=== PATIENT | female | born 1960 | race Caucasian/White ===

== ENCOUNTER → 2018-02-23 | Day surgery (SDC) | payer OTHER ==
[~2018-02-23] MED LIST: MIDAZOLAM 2 MG/2 ML VIAL ONE; PREMYELOGRAM MEDICATION REVIEW 1 EACH MISC PO NR; fentaNYL (PF) 50 MCG/ML 2 ML AMP ONE
[2018-02-23 08:43] LABS: Basophils # (A) 0.1 k/uL (0-0.2); Basophils % (A) 1 %; Eosinophils # (A) 0.2 k/uL (0-0.7); Eosinophils % (A) 2 %; HCT 44.4 % (34.0-46.0); HGB 14.7 gm/dL (11.4-16.0); Lymphocytes # (A) 2.1 k/uL (1.0-4.8); Lymphocytes % (A) 23 %; MCH 31.3 pg (25.0-35.0); MCHC 33.2 g/dL (31.0-37.0); MCV 94.3 fL (80.0-100.0); Mean Platelet Volume 7.2; Monocytes # (A) 0.4 k/uL (0-1.0); Monocytes % (A) 5 %; Neutrophils # (A) 6.2 k/uL (1.3-7.7); Neutrophils % (A) 69 %; Platelet Count 208 k/uL (150-450); RBC 4.71 m/uL (3.80-5.40); RDW 12.7 % (11.5-15.5); WBC 9.1 k/uL (3.8-10.6)
[2018-02-23 08:57] LABS: INR 0.9 (<1.2); Prothrombin Time 9.4 sec (9.0-12.0)
[2018-02-23 08:58] VITALS: RESP 16
[2018-02-23 08:58] LABS: ALT 21 U/L (9-52); AST 21 U/L (14-36); Albumin 4.1 g/dL (3.5-5.0); Alkaline Phosphatase 104 U/L (38-126); Anion Gap 11 mmol/L; Blood Urea Nitrogen 17 mg/dL (7-17); Calcium 8.9 mg/dL (8.4-10.2); Carbon Dioxide 27 mmol/L (22-30); Chloride 104 mmol/L (98-107); Cholesterol 205 mg/dL (<200); Glucose 104 mg/dL (74-99); HDL Cholesterol 44 mg/dL (40-60); LDL Cholesterol,Calculated 134 mg/dL (0-99); Sodium 142 mmol/L (137-145); Total Bilirubin 0.8 mg/dL (0.2-1.3); Total Protein 6.7 g/dL (6.3-8.2); Triglycerides 133 mg/dL (<150)
--- NOTE | 2018-02-23 12:13 | CT ---
EXAMINATION TYPE: CT cervical spine w con DATE OF EXAM: 02/23/2018 COMPARISON: NONE HISTORY: Post myelogram, intervertebral disc degeneration CT DLP: 745.3 mGycm. Automated Exposure Control for Dose Reduction was Utilized. TECHNIQUE: CT scan of the cervical spine is obtained with intrathecal contrast, axial images are obt ained, sagittal and coronal reformatted images are also reviewed. FINDINGS: Cervical spine is visualized in its entirety from C1 through upper thoracic levels, demonst rates satisfactory alignment without evidence of acute fracture or dislocation. Prevertebral soft ti ssue appears within normal limits. The C1-C2 articulation is within normal limits on the coronal pablo ges. Vertebral body heights and disc space heights are maintained. No large posterior disc herniations are seen on sagittal images. Successful contrast opacification of spinal canal is noted after myelogram. Review of axial images shows C2-C3 level to appear within normal limits. Axial images at C3-C4 level show tiny central disc protrusion axial image 51, bilateral neural forami na are patent. Axial images at C4-C5 level are felt within normal limits. Axial images at C5-C6 level shows central disc protrusion effacing anterior thecal sac on axial image 68 with bilateral neural foramina are fel t patent. Axial images at C6-C7 and C7-T1 levels are felt within normal limits. Thyroid gland is not well visualized and may be surgically absent or atrophic. Visualized lung apices are clear. IMPRESSION: Mild multilevel degenerative changes as detailed above.
--- NOTE | 2018-02-23 12:20 | CT ---
EXAMINATION TYPE: CT thoracic spine w con DATE OF EXAM: 02/23/2018 COMPARISON: Prior MRI thoracic spine February 17, 2011 HISTORY: intervertebral disc degeneration per order. CT DLP: 1504.8 mGycm Automated exposure control for dose reduction was used. CONTRAST: CT thoracic spine is performed after intrathecal injection of contrast. FINDINGS: Thoracic spine shows satisfactory alignment without evidence of acute fracture or dislocation. Verteb ral body heights and disc space heights are fairly well-maintained. Prominent Schmorl node superior T 8 endplate is redemonstrated. Spinal cord shows normal caliber and signal with slight turn or posteri or course at inferior T6 level. There is mild to moderate multilevel anterior spurring. There is smal l spur disc complex effacing anterior thecal sac at T10-T11 level on sagittal images. Review of axial images shows no additional areas of suspicious disc herniation in the thoracic spinal cord. Visualized lungs are clear. There is 2.2 cm low dense left adrenal mass, Hounsfield units aver age 7 consistent with lipid rich adenoma axial image 94. IMPRESSION: MILD TO MODERATE MULTILEVEL ANTERIOR SPURRING, SMALL SPUR DISC COMPLEX T10-T11 LEVEL FELT NEW FROM DC IOR MRI.
--- NOTE | 2018-02-23 12:43 | CT ---
EXAMINATION TYPE: CT lumbar spine w con DATE OF EXAM: 02/23/2018 COMPARISON: MRI lumbar spine February 17, 2011 HISTORY: Post myelogram, intervertebral disc degeneration per order. Persistent chronic back pain flex pite multiple surgeries. CT DLP: 1684.3 mGycm Automated exposure control for dose reduction was used. CONTRAST: CT scan of the lumbar is performed after intrathecal injection of contrast. Bone and soft tissue window settings are submitted as well as coronal and sagittal reconstructions. 5 lumbar-type vertebra are redemonstrated. Lumbar spine shows stable and satisfactory alignment witho ut evidence of acute fracture or dislocation. There is metallic disc material L4-L5 level. There are posterior interpedicular rods and screws transfixing L4 and L5 levels bilaterally. There is successfu l contrast opacification of the spinal canal. Slightly more prominent anterior epidural fat beginning at mid L5 level is noted versus prior MRI. There is redemonstration of 1.2 cm Tarlov cyst at S3 leve l sagittal image 35 stable from MRI. There is mild to moderate disc space narrowing with vacuum disc phenomenon and mild anterior spurring L5-S1 level. Otherwise vertebral body and disc space heights ar e maintained above L4 level. No large posterior disc herniations are present. There is posterior spur disc complex mildly effacing anterior thecal sac at T12-L1 level on sagittal image 33. The conus med ullaris is stable in position ending at L1-L2 disc space level. Review of axial images shows posterior spur disc complex mildly effacing anterior thecal sac at T12-L 1 level, bilateral neural foramina are patent. Axial images at L1-L2 and L2-L3 levels are felt within normal limits. Axial images at L3-L4 level show mild facet arthropathy bilaterally. There is mild broad disc bulge m ildly effacing anterior thecal sac. Bilateral neural foramina remain patent. Axial images at L4-L5 level show artifact from fusion hardware, inferior left screw extends lateral t o left vertebra . There is artifact from disc material. Spinal canal is grossly preserved. Bilateral neural foramina are felt patent on sagittal images. Axial images at L5-S1 level show mild to moderate right greater than left facet arthropathy. Spinal c anal is preserved. There is small central disc protrusion seen. There is mild to moderate bilateral n eural foraminal narrowing due to marginal spurring. There is 7 mm calculus in right kidney collecting system axial image 34 there is asymmetric mild righ t-sided pelvic dilatation and proximal to mid hydroureter without definitive calyceal dilatation. The re is mild perinephric fat stranding near UPJ. Entire right ureter is not imaged. Moderate fat replac ed atrophy of posterior paraspinal muscles are redemonstrated. IMPRESSION: Postsurgical changes L4-L5 level redemonstrated with stable and satisfactory alignment. S ome multilevel degenerative changes are seen as detailed above most prominent at L3-L4 and L5-S1 leve ls. Right-sided renal collecting system calculus with mild right-sided hydronephrosis, cannot exclude obstructing distal right ureter calculus. Clinical follow-up advised.
[2018-02-23 13:16] VITALS: PULSE 44
[2018-02-23 13:17] VITALS: BP 159/64
[2018-02-23 13:21] VITALS: TEMP 98
--- NOTE | 2018-02-23 13:21 | FL ---
EXAMINATION TYPE: FL myelogram 2 or more regions DATE OF EXAM: 02/23/2018 COMPARISON: Prior MRI thoracic and lumbar spine February 17, 2011. HISTORY: Persistent back pain despite multiple surgeries. Disc degeneration per order. TECHNIQUE: Fluoroscopic assisted myelogram. A total of 3 minutes 19 seconds of fluoroscopic time was utilized during procedure. 5 spot images are saved during procedure to PACS. Findings: Informed consent was obtained and all the patient's questions were answered. The L2-L3 lev el was was first attempted under fluoroscopy with unsuccessful access into spinal canal. There is the n paraspinal approach right L2-L3 level with longer spinal needle. Standard sterile technique was uti lized as well as appropriate local anesthesia 1% Lidocaine. Spinal needle was introduced into the th ecal sac under fluoroscopic guidance and 15 mL's of Omnipaque 180 was injected. Spot saved images show successful opacification of spinal canal. Postsurgical change L4-L5 level is r edemonstrated. Right-sided renal calculus is noted. Cholecystectomy clips are partially imaged. The patient tolerated the procedure well and was taken to CT. CT myelography is to follow. This repo rt will be dictated separately. Patient was kept in the hospital for short stay after the procedure a nd then discharged home in stable condition. Vital signs were monitored before during and after proce dure. IMPRESSION: Successful myelography for subsequent CT entire spine.
== END ==
LOC: RADPROMAIN 07:58
PROVIDERS: ATTEND Specialist
DX: M50.30 Other cervical disc degeneration, unspecified cervical region (principal); M51.34 Other intervertebral disc degeneration, thoracic region; Z00.00 Encounter for general adult medical examination without abnormal findings; E03.9 Hypothyroidism, unspecified; M50.21 Other cervical disc displacement, high cervical region; M46.04 Spinal enthesopathy, thoracic region; M46.96 Unspecified inflammatory spondylopathy, lumbar region; M51.26 Other intervertebral disc displacement, lumbar region; M46.97 Unspecified inflammatory spondylopathy, lumbosacral region; N13.4 Hydroureter; N20.0 Calculus of kidney
CPT/HCPCS: 84439; 84481; 80061; 80053; 84443; 85025; 85610; 36415; 62305; 72129; 72126; 72132; J2250; Q9965; J3010

== ENCOUNTER → 2020-05-01 | Outpatient (CLI) | payer BC ==
[2020-05-01 11:19] LABS: Appearance,Urine Clear (Clear); Bacteria,Urine Rare /hpf; Basophils # (A) 0.1 k/uL (0-0.2); Basophils % (A) 1 %; Bilirubin,Urine Negative (Negative); Blood,Urine Small (Negative); Color,Urine Yellow; Eosinophils # (A) 0.3 k/uL (0-0.7); Eosinophils % (A) 3 %; Glucose,Urine (UA) Negative (Negative); HCT 47.4 % (34.0-46.0); HGB 15.1 gm/dL (11.4-16.0); Hyaline Casts,Urine 1 /lpf (0-2); Ketones,Urine Negative (Negative); Leukocyte Esterase,Urine Large (Negative); Lymphocytes # (A) 2.3 k/uL (1.0-4.8); Lymphocytes % (A) 20 %; MCH 30.4 pg (25.0-35.0); MCHC 31.9 g/dL (31.0-37.0); MCV 95.3 fL (80.0-100.0); Mean Platelet Volume 8.1; Monocytes # (A) 0.4 k/uL (0-1.0); Monocytes % (A) 3 %; Mucus,Urine Occasional /hpf; Neutrophils # (A) 8.5 k/uL (1.3-7.7); Neutrophils % (A) 73 %; Nitrite,Urine Negative (Negative); PH, Urine 6.5 (5.0-8.0); Platelet Count 183 k/uL (150-450); Protein,Urine Trace (Negative); RBC 4.97 m/uL (3.80-5.40); RBC,Urine 19 /hpf (0-5); RDW 13.5 % (11.5-15.5); Specific Gravity,Urine 1.012 (1.001-1.035); Squamous Epithelial Cell,Urine 5 /hpf (0-4); Urobilinogen,Urine <2.0 mg/dL (<2.0); WBC 11.8 k/uL (3.8-10.6); WBC,Urine 18 /hpf (0-5)
[2020-05-01 11:25] LABS: Calcium 8.8 mg/dL (8.4-10.2); Potassium 3.9 mmol/L (3.5-5.1)
== END | disposition home or self-care (01) ==
LOC: LABPAT 10:16
PROVIDERS: ATTEND Urology
DX: Z01.818 Encounter for other preprocedural examination (principal); N20.1 Calculus of ureter; R35.0 Frequency of micturition
CPT/HCPCS: 36415; 80048; 81001; 85025; 87086

== ENCOUNTER → 2020-05-08 | Day surgery (SDC) | payer BC, OTHER ==
[2020-05-06 09:48] VITALS: BMI 31.6
[~2020-05-08] MED LIST changes: +DEXAMETHASONE SOD PHOSPHATE 10 MG/ML 1 ML VIAL IV ONE; +ENALAPRILAT 1.25 MG/ML 1 ML VIAL ONE; +GENTAMICIN 110 MG in SODIUM CHLORIDE 0.9% 100 ML IVPB ONE; +IOPAMIDOL-370 50ML BTL MISCELLANE ONE; +KETOROLAC 15 MG/ML 1 ML VIAL ONE; +LACTATED RINGERS 1,000 ML IV SCH; +LIDOCAINE 1% (10MG/ML) FOR IV START INTRADERMA PRN; +LIDOCAINE 1% INJ 10MG/ML (20 ML MDV) ONE; +MIDAZOLAM 2 MG/2 ML VIAL IV ONE; +ONDANSETRON 4 MG/2 ML VIAL IVP ONE; -PREMYELOGRAM MEDICATION REVIEW 1 EACH MISC PO NR; +PROPOFOL 10 MG/ML 20 ML VIAL IV ONE; +hydrALAZINE HCL 20 MG/ML 1 ML VIAL IV ONE; +hydrALAZINE HCL 20 MG/ML 1 ML VIAL IVP ONE
--- NOTE | 2020-05-08 14:27 | XR ---
KUB HISTORY: Right-sided kidney stone Frontal KUB and 2 images Right-sided double-J stent is in place. At the level of the proximal aspect of the stent there is a c alcification measuring approximately 8 mm. Postop changes are noted status post posterior lumbar fusi on at L4-5. Surgical staple present in the pelvis, leonie are present right upper quadrant. There ar e vascular calcifications noted. No evident bowel obstruction or pneumoperitoneum. IMPRESSION: Proximal right ureteral calculus, indwelling stent, postop changes.
--- NOTE | 2020-05-08 15:42 | P.HPIHPCON ---
History of Present Illness H&P Date: 05/08/20 Chief Complaint: right sided ureteral stone Ms Denis is 59 yo female with hx 8mm right sided ureteral stone. She is S/P right ureteral stent placement for septic stone. I discussed with her the option of ureteroscopy VS ESWL, discussed the risk of bleeding, infection with her. Discussed the risk of ureteral injury. She understood all the risks and agreed to proceed with right sided ureteroscopy Consent for Procedure: I have explained the operation/procedure to the patient, including the risks, benefits, side effects, alternative therapies (including not receiving the proposed treatment or service), the likelihood of the patient achieving his/her goals, and potential recuperation problems for the procedure/sedation/analgesia, as well as any blood products, if indicated. I also explained to the patient the risks, benefits and side effects of the alternatives, as well as the risks related to not receiving the proposed procedure, care, treatment, or services. - Constitutional Constitutional: Denies chills, Denies fever - Cardiovascular Cardiovascular: Denies chest pain, Denies shortness of breath - Respiratory Respiratory: Denies cough, Denies 7 - Gastrointestinal Gastrointestinal: Denies abdominal pain, Denies diarrhea, Denies nausea, Denies vomiting Past Medical History Past Medical History: COPD, CVA/TIA, Hypertension, Neurologic Disorder, Osteoarthritis (OA), Thyroid Disorder Additional Past Medical History / Comment(s): occasional heart palpitations. spinal cyst. degenerative disc disease History of Any Multi-Drug Resistant Organisms: None Reported Past Surgical History: Back Surgery, Cholecystectomy, Hysterectomy, Orthopedic Surgery Additional Past Surgical History / Comment(s): left neck muscle removed. total thyroidectomy. spinal fusions and disc surgeries. left total knee replacement Past Anesthesia/Blood Transfusion Reactions: No Reported Reaction, Postoperative Nausea & Vomiting (PONV) Additional Past Anesthesia/Blood Transfusion Reaction / Comment(s): no previous blood transfusion, low blood pressure during colonoscpy Smoking Status: Current every day smoker - Past Family History Father Family Medical History: CVA/TIA Additional Family Medical History / Comment(s): emphysema - Mother Family Medical History: Diabetes Mellitus, Hypertension Additional Family Medical History / Comment(s): Parkinsons Medications and Allergies Home Medications Medication Instructions Recorded Confirmed Type ALPRAZolam [Xanax] 0.5 mg PO BID PRN 02/09/18 05/08/20 History Albuterol Inhaler (Mhu) [Ventolin 1 - 2 inhalation INHALATION Q6H PRN 02/09/18 05/08/20 History Hfa Inhaler] Cyclobenzaprine [Flexeril] 1 tab PO Q6H PRN 02/09/18 05/08/20 History Levothyroxine Sodium [Synthroid] 200 mcg PO DAILY 02/09/18 05/08/20 History amLODIPine [Norvasc] 10 mg PO DAILY 02/09/18 05/08/20 History lisinopriL [Zestril] 40 mg PO BID 02/09/18 05/08/20 History Fluticasone/Umeclidin/Vilanter 1 inhalation INHALATION DAILY 05/06/20 05/08/20 History [Trelegy Ellipta 100-62.5-25] Pregabalin [Lyrica] 75 mg PO BID 05/06/20 05/08/20 History Allergies Allergy/AdvReac Type Severity Reaction Status Date / Time morphine Allergy Rash/Hives Verified 05/08/20 14:40 Sulfa (Sulfonamide Allergy Nausea & Verified 05/08/20 14:40 Antibiotics) Vomiting hydromorphone [From Dilaudid] AdvReac Vomiting Verified 05/08/20 14:40 Surgical - Exam Vital Signs Temp Pulse Resp BP Pulse Ox 97.3 F L 52 L 16 208/97 100 05/08/20 14:38 05/08/20 14:38 05/08/20 14:38 05/08/20 14:38 05/08/20 14:38 - General well developed, well nourished, no distress - Respiratory normal expansion, normal respiratory effort - Abdomen Abdomen: soft, non tender - Psychiatric oriented to time, oriented to person, oriented to place Assessment and Plan Assessment: 59 yo female with 8mm right sided ureteral stone -OR for right sided ureteroscopy, with holmium laser lithotripsy and stone basketting
--- NOTE | 2020-05-08 17:34 | P.OP ---
Date of Procedure: 05/08/20 Preoperative Diagnosis: right ureteral calculi Postoperative Diagnosis: Same Procedure(s) Performed: Cystoscopy, retrograde pyelogram, ureteroscopy, holmium laser lithotripsy, stone basketing and stent exchange Implants: 4.8-Spanish by 26 cm stent Anesthesia: AARON Surgeon: Aj Cassidy Estimated Blood Loss (ml): 5 Pathology: other (Right renal stone) Condition: stable Disposition: PACU Indications for Procedure: Ms Denis is 59 yo female with hx 8mm right sided ureteral stone. She is S/P right ureteral stent placement for septic stone. I discussed with her the option of ureteroscopy VS ESWL, discussed the risk of bleeding, infection with her. Discussed the risk of ureteral injury. She understood all the risks and agreed to proceed with right sided ureteroscopy Operative Findings: Large right-sided stone in the renal pelvis Description of Procedure: Patient was brought to the operating room, general anesthesia was induced. He was prepped and draped in the fashion was in a dorsal lithotomy position. Cystoscopy fitted with a 21-Spanish sheath was inserted per urethra, cystoscopy was performed showed no abnormality within the bladder. At this time attention was carried to the right ureteral orifice which stent was protruding from it. The stent was grasped and removed to the meatus. Next a sensor wire was advanced through the stent and the stent was removed with the wire in place. Next a 11 x 13-Spanish access sheath was passed over the wire into the proximal ureter. Next case flexible ureteroscope was inserted through the access sheath Using the holmium laser the stone was dusted. Sizable fragments were removed using the stone basket. Repeat renoscopy showed no sizable fragments and reterograde pyelogram was performed to ensure all calyces were evaluated. Pullback ureteroscopy was performed which showed no injury to the ureter or any ureteral stones. Next the cystoscope was reinserted and a sensor wire was advanced up the right ureteral orifice. Next a 4.8-Spanish by 26 cm stent was passed over the wire, the proximal curl was on fluoroscopy and distal curl was visualized and cystoscope. The bladder was emptied and that the case. The patient tolerated the procedure well was taken to PACU in stable conditi
[2020-05-08 17:37] VITALS: TEMP 97.9
[2020-05-08 19:19] VITALS: BP 160/82; PULSE 74; RESP 16
--- NOTE | 2020-05-10 11:57 | FL ---
EXAMINATION TYPE: FL urography retrograde DATE OF EXAM: 05/08/2020 FLUOROSCOPY Fluoroscopy time of 10 seconds was used during urologic intervention for right sided calculus and kelsi nt insertion. 1 image/s document/s the procedure.
== END ==
LOC: OR 14:09
PROVIDERS: ATTEND Urology
DX: N20.1 Calculus of ureter (principal); J44.9 Chronic obstructive pulmonary disease, unspecified; I10 Essential (primary) hypertension; G98.8 Other disorders of nervous system; M19.90 Unspecified osteoarthritis, unspecified site; M51.9 Unspecified thoracic, thoracolumbar and lumbosacral intervertebral disc disorder; E89.0 Postprocedural hypothyroidism; K08.89 Other specified disorders of teeth and supporting structures; F41.9 Anxiety disorder, unspecified; F32.9 Major depressive disorder, single episode, unspecified; K21.9 Gastro-esophageal reflux disease without esophagitis; F17.210 Nicotine dependence, cigarettes, uncomplicated; Z86.73 Personal history of transient ischemic attack (TIA), and cerebral infarction without residual deficits; Z88.5 Allergy status to narcotic agent; Z88.2 Allergy status to sulfonamides; Z98.890 Other specified postprocedural states; Z90.49 Acquired absence of other specified parts of digestive tract; Z90.710 Acquired absence of both cervix and uterus; Z98.1 Arthrodesis status; Z96.652 Presence of left artificial knee joint; Z91.89 Other specified personal risk factors, not elsewhere classified; Z79.899 Other long term (current) drug therapy; Z79.890 Hormone replacement therapy; Z79.51 Long term (current) use of inhaled steroids; Z96.0 Presence of urogenital implants; Z82.3 Family history of stroke; Z82.5 Family history of asthma and other chronic lower respiratory diseases; Z83.3 Family history of diabetes mellitus; Z82.49 Family history of ischemic heart disease and other diseases of the circulatory system; Z82.0 Family history of epilepsy and other diseases of the nervous system
CPT/HCPCS: 52356; 82365; 74420; 74018; C2625; C1769; J2250; J0360; J1100; J0690; J2405; J2001; J3010; J1580; J1885; J2704; Q9967

== ENCOUNTER → 2020-09-11 | Outpatient (CLI) | payer BC ==
[2020-09-11 07:37] LABS: Basophils # (A) 0.1 k/uL (0-0.2); Basophils % (A) 1 %; Eosinophils # (A) 0.3 k/uL (0-0.7); Eosinophils % (A) 3 %; HCT 45.5 % (34.0-46.0); HGB 15.2 gm/dL (11.4-16.0); Lymphocytes # (A) 2.3 k/uL (1.0-4.8); Lymphocytes % (A) 22 %; MCHC 33.5 g/dL (31.0-37.0); MCV 95.6 fL (80.0-100.0); Mean Platelet Volume 7.2; Monocytes # (A) 0.4 k/uL (0-1.0); Monocytes % (A) 4 %; Neutrophils # (A) 7.5 k/uL (1.3-7.7); Neutrophils % (A) 71 %; Platelet Count 238 k/uL (150-450); RBC 4.75 m/uL (3.80-5.40); RDW 11.9 % (11.5-15.5); WBC 10.5 k/uL (3.8-10.6)
[2020-09-11 09:52] LABS: Erythrocyte Sedimentation Rate 6 mm/hr (0-20)
--- NOTE | 2020-09-11 14:58 | NM ---
EXAMINATION TYPE: NM bone 3 phase DATE OF EXAM: 09/11/2020 COMPARISON: Left knee pain HISTORY: X-ray 09/09/2020 Triple phase bone scintigraphy was performed following the injection of 25.4 mCi Tc 99m MDP. Immedia te images and 5 hours post injection images acquired. FINDINGS: There is asymmetric increased perfusion surrounding the left knee prostheses. There is increased soft tissue uptake on blood pool images. Delayed uptake demonstrates abnormal uptake involving the right knee which is typical of osteoarthrit is. There is faint abnormal uptake surrounding the tibial component of the knee prostheses. IMPRESSION: 1. Increased flow and uptake as discussed above involving the left knee can be associated with loosen ing or infection. Consider tagged WBC study.
== END | disposition home or self-care (01) ==
LOC: RADNMMAIN 07:16
PROVIDERS: ATTEND Orthopaedic Surgery
DX: R93.6 Abnormal findings on diagnostic imaging of limbs (principal); Z88.5 Allergy status to narcotic agent; Z88.2 Allergy status to sulfonamides
CPT/HCPCS: 85652; 85025; 86140; 78315; A9503

== ENCOUNTER 2021-04-08 08:33 | Emergency (ER) | payer BC ==
[2021-04-08 08:39] VITALS: TEMP 97.5
[2021-04-08] MEDS ORDERED: IPRATROPIUM-ALBUTEROL 3 ML NEB INHALATION STA (08:46)
[2021-04-08] MEDS ORDERED: ASPIRIN 81 MG PO STA (08:46)
[2021-04-08] MEDS ORDERED: NITROGLYCERIN OINT 1 INCH/GM PACKET TOPICAL STA (08:46)
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
[2021-04-08 09:27] VITALS: RESP 16
[2021-04-08 09:28] LABS: Basophils # (A) 0.1 k/uL (0-0.2); Basophils % (A) 1 %; Eosinophils # (A) 0.2 k/uL (0-0.7); Eosinophils % (A) 2 %; HCT 45.5 % (34.0-46.0); HGB 15.1 gm/dL (11.4-16.0); Lymphocytes # (A) 2.3 k/uL (1.0-4.8); Lymphocytes % (A) 21 %; MCH 32.1 pg (25.0-35.0); MCHC 33.2 g/dL (31.0-37.0); MCV 96.6 fL (80.0-100.0); Monocytes # (A) 0.5 k/uL (0-1.0); Monocytes % (A) 4 %; Neutrophils # (A) 7.9 k/uL (1.3-7.7); Neutrophils % (A) 72 %; Platelet Count 221 k/uL (150-450); RBC 4.71 m/uL (3.80-5.40); RDW 13.1 % (11.5-15.5)
[2021-04-08 09:42] LABS: Albumin 3.9 g/dL (3.5-5.0); Calcium 9.2 mg/dL (8.4-10.2); Potassium 4.1 mmol/L (3.5-5.1); Total Bilirubin 0.5 mg/dL (0.2-1.3); Total Protein 6.3 g/dL (6.3-8.2)
[2021-04-08 09:50] LABS: INR 0.9 (<1.2); Partial Thromboplastin Time 23.5 sec (22.0-30.0); Prothrombin Time 9.4 sec (9.0-12.0)
--- NOTE | 2021-04-08 10:05 | US ---
EXAMINATION TYPE: US venous doppler duplex LE DATE OF EXAM: 04/08/2021 9:56 AM COMPARISON: NONE CLINICAL HISTORY: paini. Left knee and calf swelling; left calf pain x 1 week SIDE PERFORMED: Left TECHNIQUE: The lower extremity deep venous system is examined utilizing real time linear array sonog warren with graded compression, doppler sonography and color-flow sonography. VESSELS IMAGED: Common Femoral Vein Deep Femoral Vein Greater Saphenous Vein * Femoral Vein Popliteal Vein Small Saphenous Vein * Proximal Calf Veins (* superficial vessels) Left Leg: Negative for DVT Complex fluid collection is noted anterior left knee = 4.3 x 5.8 x 1.1cm. IMPRESSION: 1. No diagnostic evidence of DVT. 2. Complex fluid collection within the anterior soft tissues of the knee correlate clinically measure s approximately 4.3 x 5.8 cm.
--- NOTE | 2021-04-08 10:43 | CT ---
EXAMINATION TYPE: CT angio chest DATE OF EXAM: 04/08/2021 10:27 AM COMPARISON: Chest x-ray June 26, 2020 HISTORY: Dyspnea. Possible DVT left lower extremity with left leg pain. CT DLP: 452.5 mGycm Automated exposure control for dose reduction was used. CONTRAST: CTA scan of the thorax is performed with IV Contrast, patient injected with 80 mL of Isovue 370, pulm onary embolism protocol. MIP images are created and reviewed. FINDINGS: LUNGS: There is 6 x 5 mm nodule and/or nodular consolidation posterior right lower lobe axial image 8 4. The former is suspected. No additional areas of groundglass opacity or focal consolidation. Mild i nterstitial edema and atelectatic change in the periphery of the lower lungs. No pleural effusion or pneumothorax. MEDIASTINUM: There is slightly suboptimal bolus with fecal contrast right and left heart systems but there is no CT evidence for pulmonary embolism. There are no greater than 1 cm hilar or mediastinal lymph nodes. No cardiomegaly or pericardial effusion is seen. OTHER: Slight scoliotic curvature. [id number] multilevel spurring spine. IMPRESSION: No CT evidence for acute pulmonary embolism. No suspicious acute pulmonary process. Small posterior right basilar nodule, consider follow-up CT in one year time.
[2021-04-08 11:16] VITALS: PULSE 51
[2021-04-08 11:25] VITALS: BP 122/59
== END 2021-04-08 11:25 | disposition home or self-care (01) ==
LOC: EC 08:33
DX: M79.662 Pain in left lower leg (principal); R06.00 Dyspnea, unspecified; R07.9 Chest pain, unspecified; F17.200 Nicotine dependence, unspecified, uncomplicated; I10 Essential (primary) hypertension; J44.9 Chronic obstructive pulmonary disease, unspecified; E07.9 Disorder of thyroid, unspecified; Z86.73 Personal history of transient ischemic attack (TIA), and cerebral infarction without residual deficits; Z88.2 Allergy status to sulfonamides; Z88.5 Allergy status to narcotic agent; Z79.890 Hormone replacement therapy; Z79.899 Other long term (current) drug therapy; Z79.51 Long term (current) use of inhaled steroids
CPT/HCPCS: 99285; 36415; 94640; 93005; 85379; 83880; 80053; 83735; 84484; 85025; 85610; 85730; 93971; 71275; Q9967

== ENCOUNTER → 2021-10-15 | Outpatient (CLI) | payer BC ==
--- NOTE | 2021-10-15 12:05 | XR ---
EXAMINATION TYPE: XR cervical spine limited DATE OF EXAM: 10/15/2021 COMPARISON: NONE HISTORY: Left side neck pain TECHNIQUE: 3 views FINDINGS: There is facet arthropathy. There is mild multilevel degenerative disc disease but no compr ession deformities. Lung apices are clear. IMPRESSION: Mild multilevel degenerative disc disease.
== END | disposition home or self-care (01) ==
LOC: RADXRMAIN 11:40
PROVIDERS: ATTEND Family Medicine
DX: M50.30 Other cervical disc degeneration, unspecified cervical region (principal)
CPT/HCPCS: 72040

== ENCOUNTER → 2021-12-14 | Outpatient (CLI) | payer BC ==
--- NOTE | 2021-12-15 08:30 | XR ---
EXAMINATION TYPE: XR cervical spine w flex/ext DATE OF EXAM: 12/14/2021 COMPARISON: 10/15/2021 HISTORY: Pain TECHNIQUE: Four views are submitted. FINDINGS: The odontoid is intact. There are no compression deformities. The prevertebral soft tissue structur es are within normal limits. Atherosclerotic change of the carotid artery on the right suspected. Mi ld diffuse osteopenia. Flexion and extension views demonstrate slight anterior listhesis of all segme nts relative to the corresponding adjacent vertebral segment on flexion views which corrects on neutr al and extension views. Disc space appears to be well preserved. Mild multilevel facet arthropathy an d mild multilevel degenerative disc disease. IMPRESSION: 1. Minimal anterolisthesis of multiple levels on flexion views only. Consider follow-up MRI..
--- NOTE | 2021-12-15 08:43 | XR ---
EXAM TYPE: LUMBAR SPINE X RAY SERIES COMPARISON: NONE HISTORY: Back pain TECHNIQUE: 6 views are submitted including flexion and extension lateral views. FINDINGS: Alignment is anatomic. The pedicles are intact. The transverse processes are intact. There is 2 mm right upper quadrant calcification could be related to tiny renal stone. Vascular calcifications are noted near surgical clips in the gallbladder fossa. Postsurgical change lower lumbar spine with diffuse osteopenia. Degenerative changes are seen at all remaining levels most marked at levels T12-L3. Slight anterolisthesis of L4 on L5 remains stable on f lexion and extension views. Vascular calcifications noted. IMPRESSION: 1. Postsurgical changes. 2. Multilevel degenerative disc disease.
== END | disposition home or self-care (01) ==
LOC: RADXRMAIN 17:23
PROVIDERS: ATTEND Neurological Surgery
DX: M43.12 Spondylolisthesis, cervical region (principal); M51.16 Intervertebral disc disorders with radiculopathy, lumbar region
CPT/HCPCS: 72052; 72114

== ENCOUNTER 2022-01-21 07:18 | Day surgery (SDC) | payer BC ==
[2022-01-19 16:58] VITALS: BMI 31.0
[~2022-01-21 07:18] MED LIST changes: +ALPRAZolam 0.25 MG TAB PO PRN; +ALPRAZolam 0.5 MG TAB PO PRN; +ASPIRIN 325 MG TAB PO PRN; -DEXAMETHASONE SOD PHOSPHATE 10 MG/ML 1 ML VIAL IV ONE; -ENALAPRILAT 1.25 MG/ML 1 ML VIAL ONE; -GENTAMICIN 110 MG in SODIUM CHLORIDE 0.9% 100 ML IVPB ONE; -IOPAMIDOL-370 50ML BTL MISCELLANE ONE; -KETOROLAC 15 MG/ML 1 ML VIAL ONE; -LACTATED RINGERS 1,000 ML IV SCH; -LIDOCAINE 1% (10MG/ML) FOR IV START INTRADERMA PRN; -LIDOCAINE 1% INJ 10MG/ML (20 ML MDV) ONE; -MIDAZOLAM 2 MG/2 ML VIAL IV ONE; -MIDAZOLAM 2 MG/2 ML VIAL ONE; -ONDANSETRON 4 MG/2 ML VIAL IVP ONE; -PROPOFOL 10 MG/ML 20 ML VIAL IV ONE; +SODIUM CHLORIDE 0.9% 1,000 ML in EMPTY BAG 1 BAG IV ONE; -fentaNYL (PF) 50 MCG/ML 2 ML AMP ONE; -hydrALAZINE HCL 20 MG/ML 1 ML VIAL IV ONE; -hydrALAZINE HCL 20 MG/ML 1 ML VIAL IVP ONE
[2022-01-21] MEDS ORDERED: SODIUM CHLORIDE 0.9% 1,000 ML IV ONE (07:33)
[2022-01-21] MEDS ORDERED: ASPIRIN 81 MG ONE (07:33)
[2022-01-21 07:45] VITALS: RESP 16; TEMP 98
[2022-01-21] MEDS ORDERED: fentaNYL (PF) 50 MCG/ML 2 ML AMP ONE (09:35)
[2022-01-21] MEDS ORDERED: fentaNYL (PF) 50 MCG/ML 2 ML AMP IV ONE (10:02)
[2022-01-21] MEDS ORDERED: LIDOCAINE 1% INJ 10MG/ML (30 ML VIAL-PF) SQ ONE (10:02)
[2022-01-21] MEDS ORDERED: MIDAZOLAM 2 MG/2 ML VIAL IV ONE (10:02)
[2022-01-21] MEDS ORDERED: HEPARIN SODIUM 1,000 UN/ML (10ML VL) ONE (10:13)
[2022-01-21] MEDS ORDERED: IOPAMIDOL-250 100ML BTL INTRAARTER ONE ×2 (10:40)
[2022-01-21] MEDS ORDERED: hydrALAZINE HCL 20 MG/ML 1 ML VIAL IVP STA (12:04)
--- NOTE | 2022-01-21 12:26 | IR ---
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 Fluoroscopy was provided to the referring clinician.
[2022-01-21] MEDS ORDERED: ACETAMINOPHEN TAB 500 MG TAB PO ONE (15:00)
[2022-01-21 15:26] VITALS: BP 158/72; PULSE 62
--- NOTE | 2022-01-21 19:30 | P.PCN ---
Description of Procedure: PROCEDURES PERFORMED: Abdominal angiography with RLE runoff, SUMMER BABYSITTER and DCB of distal right SFA with a 6.0 x 40mm InPACT balloon INDICATION: Acute limb ischemia HISTORY: Patient is a pleasant 61-year-old female who presented with right first and second digit discoloration and pain consistent with ischemia. She was evaluated at outside hospital with a CTA which did not mention any significant disease however did have a venous ultrasound where there was incidental note of a right SFA lesion with increased velocities of 700 cm/s consistent with an obstructive lesion. Patient has continued to have nonhealing of her toes and pain and therefore recommended angiography with possible intervention. CONSENT:I have discussed the risks, benefits and alternative therapies for the above-mentioned procedure and for both sedation/analgesia as well as necessary blood product administration, if indicated, as they pertain to this patient. The patient has indicated understanding and acceptance of the risks and procedures discussed. PROCEDURE: After the risks, benefits and alternatives of the above mentioned procedure explained in detail with the patient, informed consent was obtained. Patient was taken to the catheterization lab and prepped and draped in usual fashion. 1% lidocaine was used to anesthetize the left femoral area. A 6- Icelandic sheath was placed in the left femoral artery using modified Seldinger technique. A 5-Icelandic pigtail catheter was inserted to the abdominal aorta and DSA imaging was obtained. Next, a 0.035 stiff Glidewire was advanced into the right SFA with a rim catheter. Over the glide wire, a 6-Icelandic destination sheath was advanced into the right SFA and selective right lower extremity angiography was performed. There was a distal right SFA focal lesion which appeared to have fresh thrombus, likely accounting for being missed on CTA. The decision was made to perform intervention of the right SFA. IV heparin was given. A 0.035 glide wire was used to cross the lesion. Balloon angioplasty was performed with a 4.0 x 20mm balloon. Next drug-coated balloon angioplasty was performed with a 6.0 x 40 mm InPACT DCB. The wire was pulled and final angiograms were performed. Pre intervention there was 80% stenosis with uninhibited flow. Post intervention there was <10% stenosis and uninhibited flow. A left femoral angiogram was performed and anatomoy was suitable for closure. A 6Fr Angioseal was placed with hemostasis achieved. The patient tolerated the procedure well. Patient was transported back to the post catheterization holding area in stable condition. Conscious Sedation: Patient was monitored under the direct supervision of vision of myself for conscious sedation using Versed and fentanyl for a total duration of 39 minutes HEMODYNAMICS: Ao: 144/78 Abdominal aorta: The abdominal aorta has mild calcifcation. Renal arteries not viewed. There is no significant dissection or aneurysm. There is no significant stenosis. Right lower extremity: Right common iliac artery: There is no significant stenosis. Right external iliac artery: There is no significant stenosis. Right internal iliac artery: There is no significant stenosis. Right common femoral artery: There is no significant stenosis. Right profunda: There is no significant stenosis. Right SFA: There is a focal 80% distal right SFA lesion. Right popliteal artery: There is no significant stenosis. Right tibioperoneal trunk: There is no significant stenosis. Right anterior tibial artery: There is no significant stenosis. Right porterior tibial artery: There is no significant stenosis. Right peroneal artery: There is no significant stenosis. Left lower extremity: Left common iliac artery: There is no significant stenosis. Left external iliac artery: There is no significant stenosis. Left internal iliac artery: There is no significant stenosis. Left common femoral artery: There is no significant stenosis. Left profunda: Not imaged. Left SFA: Not imaged. Left popliteal artery: Not imaged. Left tibioperoneal trunk: Not imaged. Left anterior tibial artery: Not imaged. Left porterior tibial artery: Not imaged. Left peroneal artery: Not imaged. FINAL IMPRESSION: 1. Peripheral arterial disease as described above with focal 80% stenosis of the distal right SFA. 2. S/p successful SUMMER BABYSITTER and DCB of distal right SFA with a 6.0 x 40mm InPACT balloon PLAN: 1. Aggressive risk factor modification per most recent ACC/AHA guidelines. 2. Continue dual antipatelets 3. Right SFA lesion appears to have fresh thrombus and is the most likely source for patient's acute limb ischemia with likely plaque rupture and distal embolization.
== END 2022-01-21 15:45 | disposition home or self-care (01) ==
LOC: CATHCVL 07:18
PROVIDERS: ATTEND Internal Medicine
DX: I70.211 Atherosclerosis of native arteries of extremities with intermittent claudication, right leg (principal); I10 Essential (primary) hypertension; Z20.822 Contact with and (suspected) exposure to COVID-19; J44.9 Chronic obstructive pulmonary disease, unspecified; R00.1 Bradycardia, unspecified; E78.5 Hyperlipidemia, unspecified; M54.9 Dorsalgia, unspecified; Z86.73 Personal history of transient ischemic attack (TIA), and cerebral infarction without residual deficits; Z82.49 Family history of ischemic heart disease and other diseases of the circulatory system; F17.210 Nicotine dependence, cigarettes, uncomplicated; Z79.02 Long term (current) use of antithrombotics/antiplatelets; Z79.82 Long term (current) use of aspirin; Z79.890 Hormone replacement therapy; Z79.899 Other long term (current) drug therapy; Z88.5 Allergy status to narcotic agent; Z88.2 Allergy status to sulfonamides
CPT/HCPCS: 37224; 75625; 75710; 87635; C1760; C1769 ×4; C1894 ×2; C2623; J2250; J0360; J2001; J3010; J1644; Q9966; 36200; 75716

== ENCOUNTER → 2022-02-17 | Outpatient (CLI) | payer BC ==
--- NOTE | 2022-02-17 14:47 | US ---
EXAMINATION TYPE: US arterial LE single level DATE OF EXAM: 02/17/2022 1:44 PM CLINICAL HISTORY: F17.210,I10,R00.2. History of hyperlipidemia and hypertension. History of tobacco u se. History of prior femoral artery angioplasty. Doppler Waveforms: Right: Biphasic to monophasic Left: Biphasic to monophasic Pulse Volume Recording: Satisfactory Ankle-Brachial Indices: Right: 1.08 Left: 1.02 Toe Brachial Indices: Right: 0.92 Left: 0.98 IMPRESSION: Loss of phasicity may warrant further clinical workup. Normal DEVON and TBI values bilater ally.
--- NOTE | 2022-02-18 09:05 | CA ---
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 18 - 58 / 22 - 52 cm??? M-MODE Aortic Root Diameter MM 3.7 cm AV Cusp Separation MM 1.9 cm DOPPLER AV Peak Velocity 149.5 cm/s AV Peak Gradient 8.9 mmHg LVOT Peak Velocity 130.9 cm/s LVOT Peak Gradient 6.9 mmHg MV Area PHT 3.4 cm??? Mitral E Point Velocity 74.6 cm/s Mitral A Point Velocity 81.5 cm/s Mitral E to A Ratio 0.9 MV Deceleration Time 226.4 ms MV E' Velocity 6.8 cm/s Mitral E to MV E' Ratio 11.0 TR Peak Velocity 254.4 cm/s TR Peak Gradient 25.9 mmHg Right Ventricular Systolic Press 30.9 mmHg FINDINGS Left Ventricle Moderately increased left ventricular wall thickness. Normal left ventricular systolic function with no obvious regional wall motion abnormalities.normal left ventricular diastolic filling pattern. Left ventricular ejection fraction is estimated at 55-60 %. Right Ventricle Normal right ventricular size and function. Right ventricular systolic pressure within normal limits. Right Atrium Normal right atrial size. Left Atrium Normal left atrial size. No evidence for an atrial septal defect. Mitral Valve Structurally normal mitral valve. No mitral stenosis, regurgitation or prolapse. Aortic Valve Aortic valve not well visualized. No aortic valve stenosis or regurgitation. Tricuspid Valve Trace to mild tricuspid regurgitation. Pulmonic Valve Pulmonic valve not well visualized. Pericardium No pericardial effusion. Aorta Normal size aortic root and proximal ascending aorta. CONCLUSIONS Normal LV size and systolic function. There is mild aortic valve sclerosis no restriction. No significant abnormality on the Doppler exam. No pericardial effusion Previewed by: Dr. Dee Dee Perkins MD (Electronically Signed) Final Date: 18 February 2022 09:04
== END | disposition home or self-care (01) ==
LOC: RADUSWWP 12:54
PROVIDERS: ATTEND Internal Medicine
DX: I35.2 Nonrheumatic aortic (valve) stenosis with insufficiency (principal); I10 Essential (primary) hypertension; Z87.891 Personal history of nicotine dependence
CPT/HCPCS: 93306; 93922

== ENCOUNTER → 2022-05-03 | Outpatient (CLI) | payer BC ==
--- NOTE | 2022-05-03 09:16 | CTL ---
EXAMINATION TYPE: CT Low Dose Lung DATE OF EXAM ORDERED: 05/03/2022 HISTORY: Lung cancer screening CT DLP: 110.[address] CTDI: 3.4 mGy Automated exposure control for dose reduction was used. SCREENING VISIT: Initial screening. COMPARISON: CT chest 04/08/2021 TECHNIQUE: Low dose computed tomography scan was performed through the chest at 1 mm thick sections a nd reconstructed images in multiple planes at 1 mm and [address] DIAGNOSTIC QUALITY: Satisfactory FINDINGS: LUNG NODULES: Stable left upper lobe apical irregular opacity measuring 2-3 mm Stable posterior segment right lower lobe posterior air cysts with subtle peripheral groundglass opac ity. LUNGS: COPD: Severity: Mild Fibrosis: Severity: None Lymph nodes: None Other findings: Right minor fissure intrafissural lymph node. Mild bronchial wall thickening noted ce ntrally. RIGHT PLEURAL SPACE: Effusion: None Calcification: None Thickening: None Pneumothorax: None LEFT PLEURAL SPACE: Effusion: None Calcification: None Thickening: None Pneumothorax: None HEART: Heart Size: Normal Coronary Calcification: Minimal coronary artery atherosclerosis.. Pericardial Effusion: None OTHER FINDINGS: Upper abdomen: None Bony thorax: Mild multilevel disc degeneration changes. Supraclavicular region: None Other: None IMPRESSION: 1. No clinically significant pulmonary nodules. 2. Mild COPD. CT LUNG RAD AND CT CHEST RECOMMENDATION: Lung-Rad 2 Benign Appearance or Behavior: Continue annual sc reening with LDCT in 12 months. S Modifier (other clinically significant findings): None
== END | disposition home or self-care (01) ==
LOC: RADCTMAIN 07:33
PROVIDERS: ATTEND Internal Medicine Critical Care Medicine
DX: Z12.2 Encounter for screening for malignant neoplasm of respiratory organs (principal); J44.9 Chronic obstructive pulmonary disease, unspecified; Z87.891 Personal history of nicotine dependence
CPT/HCPCS: 71271

== ENCOUNTER → 2022-05-03 | Outpatient (CLI) | payer BC | END | disposition home or self-care (01) | LOC: LABWHC1 07:06 | PROVIDERS: ATTEND Urology | DX: D35.00 Benign neoplasm of unspecified adrenal gland (principal) | CPT/HCPCS: 36415; 82533; 83835 ==

== ENCOUNTER → 2022-06-09 | Outpatient (CLI) | payer BC ==
--- NOTE | 2022-06-13 16:05 | US ---
EXAMINATION TYPE: US arterial LE single level DATE OF EXAM: 06/09/2022 9:52 AM CLINICAL HISTORY: I73.9 PVD I70.212 CLAUDICATION. Prior wound on right 5ht digit, no longer visualiz ed. History of prior darkened discoloration of right 5th digit, now slightly discolored. Prior righ t femoral angioplasty in January 2022. Doppler Waveforms: Right: Multiphasic Left: Multiphasic Ankle-Brachial Indices: Right: 1.0 Left: 1.1 Toe Brachial Indices: Right: 0.68 Left: 0.67 Additional doppler waveforms obtained on 5th digit for comparison. Appears consistent with 1st digit waveforms bilaterally. IMPRESSION: Normal ankle brachial indices
== END | disposition home or self-care (01) ==
LOC: RADUSWWP 08:55
PROVIDERS: ATTEND Internal Medicine
DX: I70.212 Atherosclerosis of native arteries of extremities with intermittent claudication, left leg (principal)
CPT/HCPCS: 93922

== ENCOUNTER → 2023-03-10 | Outpatient (CLI) | payer BC ==
--- NOTE | 2023-03-10 17:35 | CTL ---
EXAMINATION TYPE: CT Low Dose Lung DATE OF EXAM ORDERED: 03/10/2023 HISTORY: Nicotine dependence. Lung cancer screening CT DLP: 82.2 mGycm Automated exposure control for dose reduction was used. SCREENING VISIT: Subsequent COMPARISON: 05/03/2022 TECHNIQUE: Low dose computed tomography scan was performed through the chest at 1 mm thick sections a nd reconstructed images in the coronal plane at [address] DIAGNOSTIC QUALITY: Satisfactory FINDINGS: LUNG NODULES: Present, detailed below: 1. There is a 0.5 cm medial right upper lobe nodule, present previously. Series 4 image 66 LUNGS: COPD: Severity: None Fibrosis: Severity: None Lymph nodes: Non- Other findings: None RIGHT PLEURAL SPACE: Effusion: None Calcification: None Thickening: None Pneumothorax: None LEFT PLEURAL SPACE: Effusion: None Calcification: None Thickening: None Pneumothorax: None HEART: Heart Size: Normal Coronary calcification: Moderate Pericardial effusion: None OTHER FINDINGS: Upper abdomen: Left adrenal gland is enlarged measuring 2.0 cm. Bony thorax: Normal Supraclavicular region: Normal Other: Ascending thoracic aorta at the main pulmonary arteries 3.5 cm patent main pulmonary artery th e bifurcation is 3.2 cm. IMPRESSION: Stable right lung nodule. FOLLOW UP CT CHEST RECOMMENDATION: Low-dose CT chest [address] LUNG RAD: Lung-Rad 2 Benign Appearance or Behavior
== END | disposition home or self-care (01) ==
LOC: RADCTMAIN 10:22
PROVIDERS: ATTEND Internal Medicine Critical Care Medicine
DX: Z12.2 Encounter for screening for malignant neoplasm of respiratory organs (principal); F17.210 Nicotine dependence, cigarettes, uncomplicated; R91.1 Solitary pulmonary nodule
CPT/HCPCS: 71271

== ENCOUNTER → 2023-03-10 | Outpatient (CLI) | payer BC ==
--- NOTE | 2023-03-10 10:55 | MM ---
Reason for Exam: Screening (asymptomatic). Last mammogram was performed 1 year(s) and 9 month(s) ago. Patient History: Menarche at age 13. First Full-Term at age 33. Late child-bearing (after 30). Hysterectomy at age 38. Patient used Estrogen for 1 year. Risk Values: Lenora 5 year model risk: 2.0%. NCI Lifetime model risk: 9.7%. Prior Study Comparison: 07/31/2019 Bilateral Screening Mammogram, [facility]. 06/07/2021 Bilateral Screening Mammogram, [facility]. Tissue Density: The breast tissue is heterogeneously dense. This may lower the sensitivity of mammography. Findings: Analyzed By CAD. Asymmetry left breast 4.7 cm from nipple on CC view thought to be in the middle depth on the MLO view at posterior nipple line. Right breast: There is no suspicious group of microcalcifications or new suspicious mass in either breast. Overall Assessment: Incomplete: need additional imaging evaluation, BI-RAD 0 Management: Diagnostic Mammogram of the left breast. [facility] will attempt to contact patient to return for supplemental views and ultrasound if indicated. Patient should continue monthly self-breast exams. A clinical breast exam by your physician is recommended on an annual basis. This exam should not preclude additional follow-up of suspicious palpable abnormalities. Note on Lenora scores and lifetime risk: 1. A Lenora score greater than 3% is considered moderate risk. If this is the case, consider specialist referral to assess eligibility for a risk reducing agent. 2. If overall lifetime risk for the development of breast cancer is 20% or higher, the patient may qualify for future screening with alternating mammogram and breast MRI. Electronically signed and approved by: Salazar Rosas DO
== END | disposition home or self-care (01) ==
LOC: RADMAMWWP 09:27
PROVIDERS: ATTEND Family Medicine
DX: Z12.31 Encounter for screening mammogram for malignant neoplasm of breast (principal)
CPT/HCPCS: 77063; 77067

== ENCOUNTER → 2023-03-10 | Outpatient (CLI) | payer BC ==
[2023-03-10 16:33] LABS: ALT 7 U/L (8-44); AST 12 U/L (13-35); Chol/HDL Ratio 4.36 Ratio; LDL Cholesterol,Calculated 131.9 mg/dL (0.0-131.0)
== END | disposition home or self-care (01) ==
LOC: LABWHC1 09:30
PROVIDERS: ATTEND Nurse Practitioner Acute Care
DX: E78.2 Mixed hyperlipidemia (principal)
CPT/HCPCS: 36415; 80061; 84450; 84460

== ENCOUNTER → 2023-03-16 | Outpatient (CLI) | payer BC ==
--- NOTE | 2023-03-16 09:02 | MM ---
Reason for Exam: Additional evaluation requested from abnormal screening. Last screening mammogram was performed less than 1 month ago. Patient History: Menarche at age 13. First Full-Term at age 33. Late child-bearing (after 30). Hysterectomy at age 38. Patient used Estrogen for 1 year. Risk Values: Lenora 5 year model risk: 2.0%. NCI Lifetime model risk: 9.7%. Prior Study Comparison: 07/31/2019 Bilateral Screening Mammogram, [facility]. 06/07/2021 Bilateral Screening Mammogram, [facility]. 03/10/2023 Bilateral MG 3D screening mammo w/cad, [facility]. Tissue Density: Left: There are scattered fibroglandular densities. Findings: Analyzed By CAD. Spiculated appearing persistent focal asymmetry measuring 1.2 cm approximately 3-4 o'clock anterior depth within the left breast. Further ultrasound evaluation recommended. Overall Assessment: Incomplete: need additional imaging evaluation, BI-RAD 0 Management: Diagnostic Breast Ultrasound of the left breast. Entire breast including the axilla. Particular attention to the 3 to 4:00 position. Electronically signed and approved by: Maxim Raphael M.D. Radiologist
== END | disposition home or self-care (01) ==
LOC: RADMAMWWP 07:33
PROVIDERS: ATTEND Family Medicine
DX: R92.8 Other abnormal and inconclusive findings on diagnostic imaging of breast (principal)
CPT/HCPCS: 77061; 77065

== ENCOUNTER → 2023-03-20 | Outpatient (CLI) | payer BC ==
--- NOTE | 2023-03-20 08:15 | USB ---
Reason for Exam: Additional evaluation requested from abnormal screening. Patient History: Menarche at age 13. First Full-Term at age 33. Late child-bearing (after 30). Hysterectomy at age 38. Patient used Estrogen for 1 year. Risk Values: Lenora 5 year model risk: 2.0%. NCI Lifetime model risk: 9.7%. Technique: Method: Whole Breast Handheld. Prior Study Comparison: 06/07/2021 Bilateral Screening Mammogram, [facility]. 03/10/2023 Bilateral MG 3D screening mammo w/cad, [facility]. 03/16/2023 Left MG 3D work up w/cad , [facility]. Findings: The whole breast of the left breast, the axilla of the left breast and the retroareolar of the left breast were scanned. Imaged: Ultrasound imaging of: Area of concern, retroareolar region and axilla. Suspicious hypoechoic mass in the left breast 3:00 to summation of normal measuring 1.2 x 1.2 x 0.5 cm. Overall Assessment: Highly suggestive of malignancy, BI-RAD 5 Management: Ultrasound Core Biopsy of the left breast. A clinical breast exam by your physician is recommended on an annual basis and results should be correlated with mammographic findings. This exam should not preclude additional follow-up of suspicious palpable abnormalities. Results were given to the patient verbally at the time of exam. Electronically signed and approved by: Salazar Rosas DO
== END | disposition home or self-care (01) ==
LOC: RADUSWWP 07:06
PROVIDERS: ATTEND Family Medicine
DX: R92.8 Other abnormal and inconclusive findings on diagnostic imaging of breast (principal)

== ENCOUNTER → 2023-03-29 | Day surgery (SDC) | payer BC ==
--- NOTE | 2023-04-10 12:01 | MM ---
Reason for Exam: Post Procedure Mammogram. Last screening mammogram was performed less than 1 month ago. Patient History: Menarche at age 13. First Full-Term at age 33. Late child-bearing (after 30). Hysterectomy at age 38. Patient used Estrogen for 1 year. Risk Values: Lenora 5 year model risk: 2.0%. NCI Lifetime model risk: 9.7%. Prior Study Comparison: 07/31/2019 Bilateral Screening Mammogram, [facility]. 06/07/2021 Bilateral Screening Mammogram, [facility]. 03/10/2023 Bilateral MG 3D screening mammo w/cad, [facility]. 03/16/2023 Left MG 3D work up w/cad LT, [facility]. 03/20/2023 Left US breast workup , [facility]. Tissue Density: Left: The breast tissue is heterogeneously dense. This may lower the sensitivity of mammography. Pathology Description: Location: 3 o'clock. Marker Left Behind. Needle Type: Mammotome Cores: 9 Skin Nicks: 1 Gauge: 13 The procedure of ultrasound guided core biopsy was explained to the patient. Benefits, alternatives, and risks were discussed. An informed consent was then obtained. The patient was placed in supine positioning for imaging and for the procedure. The overlying skin was prepped and draped in usual sterile fashion. Lidocaine buffered with bicarbonate was used as anesthetic into the skin and subcutaneous tissue up to area of concern in the left breast at 2:00 2 cm from nipple. A frederick was made with surgical scalpel. Under ultrasound guidance, a 12-gauge vacuum assisted biopsy gun device was used to obtain 9 core samples. Following this, a biopsy clip was left in lesion. The patient tolerated the procedure well without any immediate complication. The patient was kept in the radiology department for short stay after the procedure and then discharged home in stable condition. Postprocedure mammogram: The patient was transferred to mammography for physician ordered post procedure mammogram for clip placement verification. Impression: Successful, uncomplicated ultrasound guided core biopsy of area of concern in the left breast, full pathology results to follow. Pathology Results: Result: Malignant, Invasive ductal carcinoma. LEFT BREAST, THREE O'CLOCK, ULTRASOUND GUIDED NEEDLE CORE BIOPSY: Invasive moderately differentiated ductal carcinoma (Grade 2). See Surgical Pathology Cancer Case Summary and Comment. Overall Assessment: Malignant Assessment: MG diagnostic mammo LT wo CAD. - Left: Known biopsy proven malignancy, BI-RAD 6. Management: Surgical Consultation of the left breast. Electronically signed and approved by: Salazar Rosas DO
== END ==
LOC: RADUSWWP 07:44
PROVIDERS: ATTEND Surgery
DX: R92.8 Other abnormal and inconclusive findings on diagnostic imaging of breast (principal); C50.812 Malignant neoplasm of overlapping sites of left female breast
CPT/HCPCS: 88305; 88342; 88341; 77065; 19083; A4648

== ENCOUNTER 2023-04-14 07:11 | Day surgery (SDC) | payer BC ==
[~2023-04-14 07:11] MED LIST changes: +ACETAMINOPHEN TAB 500 MG TAB PO PRN; -ALPRAZolam 0.25 MG TAB PO PRN; -ALPRAZolam 0.5 MG TAB PO PRN; -ASPIRIN 325 MG TAB PO PRN; +DEXAMETHASONE SOD PHOSPHATE 4 MG/ML 1 ML VIAL IV ONE; +HEPARIN SODIUM,PORCINE/PF 5,000 UNIT/0.5 ML SYRINGE SQ PRN; +LACTATED RINGERS 1,000 ML IV SCH; +MIDAZOLAM 2 MG/2 ML VIAL IV PRN; +ONDANSETRON 4 MG/2 ML VIAL IVP ONE; +Pre Op ABX Message 1 EACH MISC MISCELLANE ONE; +SCOPOLAMINE 1 MG/72 HR PATCH TRANSDERM ONE; -SODIUM CHLORIDE 0.9% 1,000 ML in EMPTY BAG 1 BAG IV ONE; +fentaNYL (PF) 50 MCG/ML 2 ML AMP IV PRN
[2023-04-14] MEDS ORDERED: LIDOCAINE 1% INJ 10MG/ML (20 ML MDV) SQ ONE (08:49)
[2023-04-14] MEDS ORDERED: fentaNYL (PF) 50 MCG/ML 2 ML AMP ONE (09:35)
[2023-04-14] MEDS ORDERED: PROPOFOL 10 MG/ML 20 ML VIAL IV ONE (09:35)
[2023-04-14] MEDS ORDERED: MIDAZOLAM 2 MG/2 ML VIAL ONE (09:35)
[2023-04-14] MEDS ORDERED: GLYCOPYRROLATE 0.2 MG/ML 2 ML VIAL ONE (09:35)
[2023-04-14] MEDS ORDERED: LIDOCAINE 2% INJ 20 MG/ML (2 ML VIAL) ONE (09:35)
[2023-04-14] MEDS ORDERED: KETOROLAC 15 MG/ML 1 ML VIAL ONE (09:35)
[2023-04-14] MEDS ORDERED: ePHEDrine 50 MG/ML 1 ML VIAL ONE (09:35)
[2023-04-14] MEDS ORDERED: SODIUM CHLORIDE 0.9% 50 ML with ceFAZolin 2,000 MG IV ONE ×2 (09:40)
[2023-04-14] MEDS ORDERED: ceFAZolin 1,000 MG VIAL ONE (09:58)
[2023-04-14] MEDS ORDERED: SODIUM CHLORIDE 0.9% 100 ML BAG ONE (09:58)
[2023-04-14] MEDS ORDERED: METHYLENE BLUE 50 MG/10 ML AMPUL INJ ONE (10:00)
[2023-04-14] MEDS ORDERED: HYDROmorphone 1 MG/ML 1 ML SYRINGE IVP PRN (11:08)
[2023-04-14] MEDS ORDERED: NALOXONE 0.4 MG/ML 1 ML VIAL IV PRN (11:08)
[2023-04-14] MEDS ORDERED: HYDROcodone/APAP 5-325MG 1 EACH TAB PO PRN (11:08)
--- NOTE | 2023-04-14 11:11 | P.OP ---
Date of Procedure: 04/14/23 Procedure(s) Performed: PREOPERATIVE DIAGNOSIS: Left breast cancer POSTOPERATIVE DIAGNOSIS: Same PROCEDURE: Left Breast wire localization lumpectomy with sentinel lymph node biopsy SURGEON: Ivan EBL: 10 mL ANESTHESIA: General COMPLICATIONS: None OPERATIVE PROCEDURE: Patient was placed on the operating room table in the supine position. 2 mL of methylene blue was injected into the subareolar space. The breast was then massaged for 5 minutes. The breast was prepped and draped in usual sterile fashion. The left axilla was addressed at that time. The hot spot in the left axilla was identified. A small curvilinear incision was made using the scalpel. Dissection down through the subcutaneous tissues took place using electrocautery. Using the neoprobe I identified a total of 4 sentinel lymph nodes. None of these were blue in color. These had benign exam characteristics. These were all removed and sent to pathology for permanent sectioning. The surgical site was inspected and no bleeding was seen. The subcutaneous tissues were closed using 3-0 Vicryl sutures. The skin was closed using 4-0 Monocryl sutures. The wire entrance site was then addressed. This was present at the 3:00 location. A curvilinear incision was made adjacent to the wire entrance site. I followed the wire down into the breast tissue. An adequate lumpectomy specimen then took place around the wire. Margins of 1.5-2 cm worth attempted to be achieved. Palpation of the specimen suggested that the posterior and superior margins were somewhat close. I took an additional margin posteriorly and superiorly and these margins were painted the appropriate color on the new margin side. The initial specimen was also painted the appropriate 6 colors. Clips were used to identify the lumpectomy cavity. The clip was confirmed to be within the lumpectomy specimen by radiology. The subcutaneous tissues were closed using 3-0 Vicryl sutures. The skin was closed using a running 4-0 Monocryl stitch. Skin glue was then applied. DISPOSITION: Stable to recovery room
--- NOTE | 2023-04-14 11:13 | NM ---
EXAMINATION TYPE: NM sentinel node injection DATE OF EXAM: 04/14/2023 COMPARISON: NONE CLINICAL INDICATION: Female, 62 years old with history of Breast cancer; TECHNIQUE AND FINDINGS: The procedure of sentinel lymph node injection was explained to the patient. The benefits, alternatives, and risks were discussed. An informed consent was then obtained. Overlying skin is cleaned with sterile alcohol. Following this, 517 uCi Tc99m Tilmanocept was inject ed in the upper outer aspect of the left nipple intradermally. The patient tolerated the procedure well without any immediate complication. The patient was kept in the radiology department for short stay after the procedure and then taken to surgery for surgical p rocedure what is presumed intraoperative gamma probe will be used for sentinel lymph node detection. IMPRESSION: Left breast radiotracer injection for sentinel node localization as above.
[2023-04-14 11:15] VITALS: TEMP 96.8
[2023-04-14] MEDS ORDERED: ONDANSETRON 4 MG/2 ML VIAL IVP ONE (11:29)
[2023-04-14] MEDS ORDERED: fentaNYL (PF) 50 MCG/ML 2 ML AMP IVP ONE (11:48)
[2023-04-14 12:29] VITALS: RESP 20
[2023-04-14 13:22] VITALS: BP 124/66; PULSE 64
--- NOTE | 2023-04-20 14:08 | MM ---
Reason for Exam: Post Procedure Mammogram. Last screening mammogram was performed 1 month(s) ago. Patient History: Menarche at age 13. First Full-Term at age 33. Late child-bearing (after 31). Hysterectomy at age 38. Breast cancer, left, age 62. Patient used Estrogen for 1 year. 03/29/2023, Malignant US biopsy breast VAD LT on the left side. Prior Study Comparison: 03/10/2023 Bilateral MG 3D screening mammo w/cad, [facility]. 03/16/2023 Left MG 3D work up w/cad LT, [facility]. 03/29/2023 Left MG diagnostic mammo LT wo CAD., [facility]. Tissue Density: Left: The breast tissue is heterogeneously dense. This may lower the sensitivity of mammography. Pathology Description: Location: 2 o'clock, upper outer quadrant, anterior. Needle Type: 5 cm Kopan Informed consent was obtained and all the patient's questions were answered. The lesion in question was localized sonographically. The standard sterile technique was utilized, as well as appropriate local anesthesia with 1% Lidocaine. Localization needle followed by placement of a guidewire was performed under sonographic guidance. Verification images demonstrate appropriate deployment of the guidewire utilizing ultrasound and mammographic views. The patient tolerated the procedure well and left the department in stable condition. Specimen radiograph demonstrates the clip, wire and lesion in question to reside within the specimen. IMPRESSION: Successful needle localization and open biopsy left breast with pathology results pending. Pathology Results: Result: Malignant, Invasive ductal carcinoma. A. LEFT BREAST, LUMPECTOMY: Invasive moderately differentiated ductal carcinoma (Grade 2), margins negative. See Surgical Pathology Cancer Case Summary. B. LEFT SENTINEL NODES: Five lymph nodes negative for metastasis. CK7 and JOSE RAFAEL immunoperoxidase stains performed on blocks B1, B2, B3, B4 and B5 are confirmatory (controls appropriate). C. POSTERIOR/SUPERIOR NEW MARGIN LEFT BREAST, EXCISION: Benign breast with fibrocystic changes. Overall Assessment: Malignant Assessment: MG diagnostic mammo LT wo CAD. - Left: Known biopsy proven malignancy, BI-RAD 6. Management: Surgical Consultation of the left breast. Electronically signed and approved by: Andres Murillo M.D. Radiologis
== END 2023-04-14 13:25 | disposition home or self-care (01) ==
LOC: OR 07:11
PROVIDERS: ATTEND Surgery
DX: C50.812 Malignant neoplasm of overlapping sites of left female breast (principal); N60.12 Diffuse cystic mastopathy of left breast; I10 Essential (primary) hypertension; E78.5 Hyperlipidemia, unspecified; E07.9 Disorder of thyroid, unspecified; J44.9 Chronic obstructive pulmonary disease, unspecified; F17.210 Nicotine dependence, cigarettes, uncomplicated; Z79.84 Long term (current) use of oral hypoglycemic drugs; Z79.82 Long term (current) use of aspirin; Z79.899 Other long term (current) drug therapy; Z79.01 Long term (current) use of anticoagulants; Z86.718 Personal history of other venous thrombosis and embolism
CPT/HCPCS: 19301; 38525; 19285 ×2; 88342; 88307; 88341; 77065; 76098; 76999; 38792; C1819; A9520; J2250; J1100; J2405; J0690; J2001 ×2; J3010; J1885; J2704; Q9968; J1644

== ENCOUNTER 2023-07-21 17:01 | Emergency (ER) | payer BC ==
[2023-07-21 17:43] VITALS: TEMP 99.2
[2023-07-21 18:18] LABS: ALT 14 U/L (4-34); AST 18 U/L (14-36); African American GFR (CKD) 82 (>60 ml/min/1.73 sqM); Albumin 3.8 g/dL (3.5-5.0); Alkaline Phosphatase 100 U/L (38-126); Anion Gap 9 mmol/L; Blood Urea Nitrogen 14 mg/dL (7-17); Calcium 8.6 mg/dL (8.4-10.2); Carbon Dioxide 23 mmol/L (22-30); Chloride 104 mmol/L (98-107); Glucose 104 mg/dL (74-99); Magnesium 1.6 mg/dL (1.6-2.3); Non-African American GFR(CKD) 71 (>60 ml/min/1.73 sqM); Potassium 3.4 mmol/L (3.5-5.1); Sodium 136 mmol/L (137-145); Total Bilirubin 0.7 mg/dL (0.2-1.3); Total Protein 6.2 g/dL (6.3-8.2)
[2023-07-21 18:27] LABS: HCT 41.7 % (34.0-46.0); HGB 14.3 gm/dL (11.4-16.0); MCH 32.6 pg (25.0-35.0); MCHC 34.4 g/dL (31.0-37.0); MCV 94.8 fL (80.0-100.0); Mean Platelet Volume 9.3; Platelet Count 127 k/uL (150-450); RDW 12.3 % (11.5-15.5); WBC 2.8 k/uL (3.8-10.6)
[2023-07-21 18:34] LABS: INR 0.9 (<1.2); Partial Thromboplastin Time 25.7 sec (22.0-30.0); Prothrombin Time 9.9 sec (10.0-12.5)
[2023-07-21] MEDS ORDERED: ASPIRIN 81 MG PO STA (19:34)
[2023-07-21 19:37] VITALS: RESP 20
--- NOTE | 2023-07-21 19:58 | XR ---
EXAMINATION TYPE: XR chest 2V DATE OF EXAM: 07/21/2023 6:31 PM CLINICAL INDICATION:Female, 63 years old with history of Chest Pain; [facility] COMPARISON: None TECHNIQUE: XR chest 2V Frontal and lateral views of the chest. FINDINGS: Lines/Tubes: No indwelling lines are seen. Lungs/Pleura: There is no evidence of pleural effusion, focal consolidation, or pneumothorax. Mild c hronic interstitial coarsening and senescent changes. Pulmonary vascularity: Unremarkable. Heart/mediastinum: Cardiomediastinal silhouette is unremarkable. Musculoskeletal: No acute osseous pathology. Mild degenerative changes of the shoulders and thoracic spine. Other findings: Surgical clips left lateral chest wall. IMPRESSION: No acute cardiopulmonary disease/process.
[2023-07-21 20:01] LABS: Band Neutrophils % 7 %; Eosinophils # (M) 0.03 k/uL (0-0.7); Lymphocytes # (M) 1.37 k/uL (1.0-4.8); Metamyelocytes # (M) 0.03 k/uL (0); Metamyelocytes % 1 %; Monocytes # (M) 0.45 k/uL (0-1.0); Myelocytes # (M) 0.14 k/uL (0); Myelocytes % 5 %; Neutrophils % (M) 22 %; Nucleated Red Blood Cells 0 /100 WBC (0-0); Total Cells Counted 200
[2023-07-21 20:02] LABS: Large Platelets Present
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
[2023-07-21 22:28] VITALS: BP 108/66; PULSE 78
== END 2023-07-21 22:11 | disposition home or self-care (01) ==
LOC: EC 17:01
DX: U07.1 COVID-19 (principal); R07.89 Other chest pain; E78.5 Hyperlipidemia, unspecified; F17.200 Nicotine dependence, unspecified, uncomplicated; I10 Essential (primary) hypertension; E07.9 Disorder of thyroid, unspecified; J44.9 Chronic obstructive pulmonary disease, unspecified; F41.9 Anxiety disorder, unspecified; Z79.51 Long term (current) use of inhaled steroids; Z79.82 Long term (current) use of aspirin; Z79.899 Other long term (current) drug therapy; Z88.2 Allergy status to sulfonamides; Z88.5 Allergy status to narcotic agent
CPT/HCPCS: 36415; 71046; 80053; 83735; 84484; 85025; 85379; 85610; 85730; 93005; 99285

== ENCOUNTER → 2023-09-14 | Outpatient (CLI) | payer BC ==
--- NOTE | 2023-09-14 16:24 | US ---
EXAMINATION TYPE: US venous doppler duplex LE LT DATE OF EXAM: 09/14/2023 4:06 PM COMPARISON: US 04/08/2021 CLINICAL INDICATION: Female, 63 years old with history of LLE; R22.42 MASS AND LUMP, LEFT LOWER LIMB ; Swelling x 1 week. Patient currently on chemo for breast cancer. SIDE PERFORMED: Left TECHNIQUE: The lower extremity deep venous system is examined utilizing real time linear array sonog warren with graded compression, doppler sonography and color-flow sonography. VESSELS IMAGED: Common Femoral Vein Deep Femoral Vein Greater Saphenous Vein * Femoral Vein Popliteal Vein Small Saphenous Vein * Proximal Calf Veins (* superficial vessels) Right Leg: NA Left Leg: Negative for DVT IMPRESSION: No evidence for DVT within the left lower extremity imaged from the groin to the upper calf.
== END | disposition home or self-care (01) ==
LOC: RADUSWWP 15:49
PROVIDERS: ATTEND Internal Medicine Hematology & Oncology
DX: R22.42 Localized swelling, mass and lump, left lower limb (principal); C50.919 Malignant neoplasm of unspecified site of unspecified female breast

== ENCOUNTER 2023-09-26 08:46 | Emergency (ER) | payer OTHER, BC ==
[2023-09-26] MEDS ORDERED: DIPH,PERTUS(ACELL)TETVAC-LF 0.5 ML VIAL IM ONE (09:07)
[2023-09-26 09:08] VITALS: RESP 18
--- NOTE | 2023-09-26 09:51 | CT ---
EXAMINATION TYPE: CT brain fordine wo con DATE OF EXAM: 09/26/2023 COMPARISON: None HISTORY: Fall. CT DLP: 1387 mGycm, Automated exposure control for dose reduction was used. CONTRAST: Patient injected with 0 mL of Isovue 300. CT of the brain is performed utilizing 3 mm thick sections through the posterior fossa and 3 mm thick sections through the remaining calvarium. Study is performed within 24 hours of arrival to the hospital. No abnormal hyperdensity is present to suggest an acute intracranial hemorrhage. No mass lesion is evident. No acute infarcts are evident. Ventricles and sulci are appropriate for the patient age. Paranasal sinuses and mastoid air cells within the [id number] are clear. IMPRESSIONS: 1. No acute intracranial process. Follow-up MRI can be performed as clinically indicated. CT cervical spine. COMPARISON: 02/23/2018 CT of the cervical spine is performed in the axial plane at 2 mm thick sections. Reconstructed image s in the coronal, and sagittal plane are reviewed on the computer. No acute fractures are evident. Vertebral body alignment is normal. Disc heights are preserved. Vertebral body heights are preserved. No spinal canal stenosis is evident. No neural foraminal stenosis is evident. IMPRESSION: 1. No acute osseous abnormality cervical spine
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
[2023-09-26] MEDS ORDERED: traMADol 50 MG TAB PO STA (10:27)
--- NOTE | 2023-09-26 10:39 | XR ---
EXAMINATION TYPE: XR hand complete LT DATE OF EXAM: 09/26/2023 10:35 AM CLINICAL INDICATION:Female, 63 years old with history of pain; [facility] COMPARISON: None TECHNIQUE: XR hand complete LT Frontal, lateral and oblique views were obtained. FINDINGS: Normal alignment of the visualized joints. No acute osseous pathology is identified. No e vidence of soft tissue swelling. Multifocal degeneration changes with throughout the joints of the adair nd predominantly the interphalangeal joints. IMPRESSION: 1. No acute osseous pathology. 2. Mild multifocal osteoporosis changes of the interphalangeal joints.
--- NOTE | 2023-09-26 10:40 | XR ---
EXAMINATION TYPE: XR shoulder complete LT DATE OF EXAM: 09/26/2023 10:35 AM CLINICAL INDICATION:Female, 63 years old with history of pain; COMPARISON: None TECHNIQUE: XR shoulder complete LT; examined in AP, internally rotated and scapular Y projections. FINDINGS: No evidence of acute osseous pathology, joint dislocation, or soft tissue swelling. The remaining po rtions of the visualized chest are unremarkable. Mild degeneration changes of the left acromion and distal clavicle. Surgical clips in the left axilla. IMPRESSION: No acute osseous pathology. Mild shoulder osteoarthrosis.
[2023-09-26 11:40] VITALS: BP 124/57; PULSE 60; TEMP 98
== END 2023-09-26 11:40 | disposition home or self-care (01) ==
LOC: EC 08:46
DX: S60.212A Contusion of left wrist, initial encounter (principal); I10 Essential (primary) hypertension; J44.9 Chronic obstructive pulmonary disease, unspecified; E78.5 Hyperlipidemia, unspecified; M19.90 Unspecified osteoarthritis, unspecified site; E07.9 Disorder of thyroid, unspecified; F41.9 Anxiety disorder, unspecified; F17.200 Nicotine dependence, unspecified, uncomplicated; Z79.890 Hormone replacement therapy; Z79.899 Other long term (current) drug therapy; Z88.5 Allergy status to narcotic agent; Z88.2 Allergy status to sulfonamides; Z88.8 Allergy status to other drugs, medicaments and biological substances; Z23 Encounter for immunization; Z79.82 Long term (current) use of aspirin; W01.0XXA Fall on same level from slipping, tripping and stumbling without subsequent striking against object, initial encounter
CPT/HCPCS: 70450; 72125; 90471; 90715; 99285

== ENCOUNTER → 2023-09-26 | Outpatient (CLI) | payer BC ==
--- NOTE | 2023-09-27 11:21 | CA ---
Transthoracic Echo Report Name: Rayna Denis Age: 63 Gender: F : 1960 Exam Date: 09/26/2023 17:50 Exam Location: [facility] Ht (in): 67 Wt (lb): 194 Ordering Physician: Edison Gilliam DO ([id number]) Attending/Referring Phys: Nuclear Chemistry Technician Kylie Sanchez RDCS Procedure CPT: Indications: R60.0LOCALIZED EDEMA Cardiac Hx: Technical Quality: Fair Contrast 1: Total Dose (mL): Contrast 2: Total Dose (mL): MEASUREMENTS (Male / Female) Normal Values 2D ECHO LV Diastolic Diameter PLAX 4.6 cm 4.2 - 5.9 / 3.9 - 5.3 cm LV Systolic Diameter PLAX 3.6 cm IVS Diastolic Thickness 1.8 cm 0.6 - 1.0 / 0.6 - 0.9 cm LVPW Diastolic Thickness 1.6 cm 0.6 - 1.0 / 0.6 - 0.9 cm LV Relative Wall Thickness 0.7 LA Volume 64.2 cm??? 18 - 58 / 22 - 52 cm??? LA Volume Index 31.1 cm???/m??? 16 - 28 cm???/m??? DOPPLER AV Peak Velocity 161.2 cm/s AV Peak Gradient 10.4 mmHg AV Mean Velocity 114.8 cm/s AV Mean Gradient 5.9 mmHg AV Velocity Time Integral 29.3 cm LVOT Peak Velocity 168.1 cm/s LVOT Peak Gradient 11.3 mmHg LVOT Velocity Time Integral 30.6 cm MV Area PHT 4.2 cm??? Mitral E Point Velocity 77.3 cm/s Mitral A Point Velocity 94.7 cm/s Mitral E to A Ratio 0.8 MV Deceleration Time 181.9 ms MV E' Velocity 7.6 cm/s Mitral E to MV E' Ratio 10.2 TR Peak Velocity 232.4 cm/s TR Peak Gradient 21.6 mmHg Right Ventricular Systolic Press 26.6 mmHg FINDINGS Left Ventricle Moderately increased left ventricular wall thickness. Left ventricular cavity size normal. Normal left ventricular systolic function with no obvious regional wall motion abnormalities. Left ventricular ejection fraction is estimated at 55-60 %. Right Ventricle Normal right ventricular size and function . Right ventricular systolic pressure within normal limits. Right Atrium Normal right atrial size. Left Atrium Mildly increased left atrial volume. Mitral Valve Structurally normal mitral valve. Trace mitral regurgitation. Aortic Valve No aortic valve stenosis or regurgitation. Tricuspid Valve Structurally normal tricuspid valve. Mild tricuspid regurgitation. Pulmonic Valve Structurally normal pulmonic valve. Pericardium No pericardial effusion. Aorta Normal size aortic root and proximal ascending aorta. CONCLUSIONS Technically difficult study for interpretation Normal LV systolic function Mild mitral and tricuspid regurgitation No pericardial effusion Previewed by: Dr. Albin Mcdaniel MD (Electronically Signed) Final Date: 27 September 2023 11:20
== END | disposition home or self-care (01) ==
LOC: RADECHMAIN 17:41
PROVIDERS: ATTEND Internal Medicine
DX: R60.0 Localized edema (principal)
CPT/HCPCS: 93306

== ENCOUNTER → 2023-09-27 | Outpatient (CLI) | payer BC ==
[2023-09-27 08:36] LABS: ALT 12 U/L (4-34); AST 26 U/L (14-36); African American GFR (CKD) 53 (>60 ml/min/1.73 sqM); Albumin 2.9 g/dL (3.5-5.0); Albumin/Globulin Ratio 1.3; Alkaline Phosphatase 96 U/L (38-126); Anion Gap 9 mmol/L; Blood Urea Nitrogen 12 mg/dL (7-17); Calcium 7.7 mg/dL (8.4-10.2); Carbon Dioxide 22 mmol/L (22-30); Chloride 104 mmol/L (98-107); Globulin 2.2 g/dL; Glucose 94 mg/dL (74-99); Non-African American GFR(CKD) 46 (>60 ml/min/1.73 sqM); Potassium 2.8 mmol/L (3.5-5.1); Sodium 135 mmol/L (137-145); Total Bilirubin 0.7 mg/dL (0.2-1.3); Total Protein 5.1 g/dL (6.3-8.2)
[2023-09-27 08:44] LABS: NT-Pro-B-Type Natriuretic Pept 1050 pg/mL
== END | disposition home or self-care (01) ==
LOC: LABWHC1 06:55
PROVIDERS: ATTEND Internal Medicine
DX: R60.9 Edema, unspecified (principal); R06.02 Shortness of breath
CPT/HCPCS: 36415; 80053; 83880

== ENCOUNTER → 2023-10-05 | Outpatient (CLI) | payer BC ==
--- NOTE | 2023-10-07 16:05 | PE ---
EXAMINATION TYPE: PET CT fusion skull to thigh DATE OF EXAM: 10/05/2023 CLINICAL INDICATION:Female, 63 years old with history of C50.412 breast ca; TECHNIQUE: Following the intravenous administration of 11.12 mCi of F-18 FDG, whole body images are performed from the skull base to the midthigh. Images are reviewed on the computer in the coronal, axial, and sagittal planes. Reconstructed rotating images are created on independent workstation and reviewed on the computer. A non-contrast CT is performed in conjunction with the PET scan. Glucose level 93 mg/dL CT DLP: 1773 mGycm, Automated exposure control for dose reduction was used. COMPARISON: CT 09/26/2023, 03/10/2023, 05/03/2022, 04/08/2021., PET/CT None, FINDINGS: Mediastinal SUV mean is 1.94 . Hepatic parenchyma SUV mean is 2.6. SKULL BASE AND NECK: No suspicious radiotracer activity. CHEST, MEDIASTINUM, AND HILAR REGION: * Surgical changes to the left breast without increased metabolic activity. Multiple clips present. Mild skin thickening present in the left breast measuring up to 5 mm. This is out of the [id number] w on prior CT. * No enlarged metabolically active lymph nodes identified. * Right upper lung pulmonary nodule measuring 3 mm series 3 image 82. * Right minor fissure intrafissural lymph node series 3 image 105 ABDOMEN AND PELVIS: No suspicious radiotracer activity. * Stable left adrenal nodule measuring 20 mm and 12 Hounsfield units. No increased metabolic activit y. Max SUV 2.9. MUSCULOSKELETAL STRUCTURES: * Indeterminate focus within the right deltoid muscle max SUV 9.5. No CT correlate. OTHER CT: Visualized intracranial structures are within normal limits. Atherosclerosis of the intracr anial arterial system. Atherosclerosis at the carotid bifurcations. Mild to moderate coronary artery atherosclerosis. Aortic valve consultations present. No gallbladder surgically absent. Fixation hard everett in the lower spine appears intact. Multilevel degeneration changes throughout the spine. The [place] is surgically absent. IMPRESSION: 1. Posttreatment changes to left breast with mild skin thickening. No breast masses are lesions with increased metabolic activity. No enlarged metabolically active lymph nodes identified. 2. Stable right upper lobe 3 mm pulmonary nodule back to at least 03/10/2023 3. Indeterminate right deltoid muscle increased metabolic activity correlate with recent injection.
== END | disposition home or self-care (01) ==
LOC: RADPETMAIN 06:33
PROVIDERS: ATTEND Internal Medicine Hematology & Oncology
DX: N64.89 Other specified disorders of breast (principal); C50.412 Malignant neoplasm of upper-outer quadrant of left female breast; R91.1 Solitary pulmonary nodule
CPT/HCPCS: 78815; A9552

== ENCOUNTER → 2023-10-16 | Outpatient (CLI) | payer BC ==
[2023-10-16 11:01] LABS: HCT 38.3 % (37.2-46.3); HGB 12.1 g/dL (12.0-15.0); MCH 31.4 pg (27.0-32.0); MCHC 31.6 g/dL (32.0-37.0); MCV 99.5 FL (80.0-97.0); Mean Platelet Volume 10.6 FL (9.5-12.2); NRBC Per 100 WBC 0 X 10*3/uL (0.00-0.01); Platelet Count 217 X 10*3/uL (140-440); RBC 3.85 X 10*6/uL (4.10-5.20); RDW 15.1 % (11.5-14.5); WBC 6.09 X 10*3/uL (4.50-10.00)
[2023-10-16 11:14] LABS: ALT <5 U/L (8-44); AST 16 U/L (13-35); Albumin 3.6 g/dL (3.8-4.9); Albumin/Globulin Ratio 1.89 Ratio (1.60-3.17); Alkaline Phosphatase 113 U/L (41-126); BUN/Creat Ratio 10.56 Ratio (12.00-20.00); Blood Urea Nitrogen 9.5 mg/dL (9.0-27.0); Calcium 8.9 mg/dL (8.7-10.3); Carbon Dioxide 22.2 mmol/L (21.6-31.8); Chloride 103 mmol/L (96-109); Globulin 1.9 g/dL (1.6-3.3); Glucose 144 mg/dL (70-110); Potassium 3.4 mmol/L (3.5-5.5); Sodium 140 mmol/L (135-145); Total Bilirubin 1.1 mg/dL (0.3-1.2); Total Protein 5.5 g/dL (6.2-8.2)
== END | disposition home or self-care (01) ==
LOC: LABWHC1 08:01
PROVIDERS: ATTEND Internal Medicine
DX: E87.6 Hypokalemia (principal); N17.9 Acute kidney failure, unspecified; R06.02 Shortness of breath
CPT/HCPCS: 36415; 80053; 85027

== ENCOUNTER → 2024-01-22 | Outpatient (CLI) | payer BC ==
--- NOTE | 2024-01-23 16:48 | BD ---
EXAMINATION TYPE: Axial Bone Density DATE OF EXAM: 01/22/2024 CLINICAL HISTORY: 63 years old Female. ICD-10 CODE: C50.412 BREAST CA Height: 66.75 Weight: 189 FRAX RISK QUESTIONS: Family History (Parent hip fracture): no Glucocorticoids (More than 3mos): no (Ex: prednisone, prednisolone, methylprednisolone, dexamethasone, and hydrocortisone). History of Fracture in Adulthood: yes Secondary Osteoporosis: no Current Tobacco Use: yes RISK FACTORS HISTORY OF: Surgery to Spine: yes When: 5 surgeries from 1998 to 2021 MEDICATIONS: Thyroid Medications: yes Which medication: Levothyroxine How Lon+ years Osteoporosis Medications: no EXAM MEASUREMENTS: Bone mineral densitometry was performed using the [employer] System. Bone mineral density about the R hip (g/cm2): 0.798 Bone mineral density about the L hip (g/cm2): 0.771 T Score values are as follows: -----R Neck: -2.0 -----L Neck: -2.3 -----R Total: -1.7 -----L Total: -1.9 Z Score values are as follows: -----R Neck: -1.1 -----L Neck: -1.4 -----R Total: -1.1 -----L Total: -1.3 Bone mineral density baseline Bone mineral density about the L Wrist (g/cm2): 0.496 T Score values are as follows: -----Dist. R+U: -3.0 -----Prox. R+U: -2.3 -----Radius total: -2.9 Z Score values are as follows: -----Dist. R+U: -1.8 -----Prox. R+U: -1.1 -----Radius total: -1.8 Bone mineral density baseline FRAX%s: The graph provided illustrates a 20.1% chance for a major osteoporotic fx and a 5.8% chance f or the hips probability for fx in 10 years time. IMPRESSION: Osteoporosis (T Score less than -2.5). There is increased fracture risk and therapy is usually indicated based on age. Re-Screen 1-2 years. NOTE: T-SCORE=SD OF THE YOUNG ADULT MEAN.
== END | disposition home or self-care (01) ==
LOC: RADBDWWP 15:50
PROVIDERS: ATTEND Internal Medicine Hematology & Oncology
DX: M81.0 Age-related osteoporosis without current pathological fracture (principal); M85.89 Other specified disorders of bone density and structure, multiple sites; C50.412 Malignant neoplasm of upper-outer quadrant of left female breast; Z17.0 Estrogen receptor positive status [ER+]; Z71.3 Dietary counseling and surveillance
CPT/HCPCS: 77080

== ENCOUNTER → 2024-02-07 | Outpatient (CLI) | payer BC ==
--- NOTE | 2024-02-07 08:54 | US ---
EXAMINATION TYPE: US renal artery duplex complet DATE OF EXAM: 02/07/2024 COMPARISON: NONE CLINICAL INDICATION: Female, 63 years old with history of I73.9 PERIPHERAL VASCULAR DISEASE, UNSPECIF IED; patient states HTN for years, currently 240/90 MEASUREMENTS: RENAL SIZE: Right Kidney: 9.0 x 3.6 x 3.6cm Left Kidney: 10.5 x 5.1 x 6.2cm Right Kidney: No hydronephrosis or lesions seen Left Kidney: No hydronephrosis or lesions seen Abd Aorta: wnl RESISTANCE INDEX Right: 0.7 Left: 0.7 RA/AO RATIO (< 3.5 ) Right: 0.8 Left: 0.7 RENAL ARTERY VELOCITY ( < 180 cm/s) Right: 89.4 Left: 79.3 Service Plumber Notes: normal velocities seen within renal arteries IMPRESSION: No evidence for renal artery stenosis.
== END | disposition home or self-care (01) ==
LOC: RADUSWWP 07:06
PROVIDERS: ATTEND Internal Medicine
DX: I73.9 Peripheral vascular disease, unspecified (principal); I10 Essential (primary) hypertension
CPT/HCPCS: 82088; 84244; 93975

== ENCOUNTER → 2024-03-02 | Outpatient (CLI) | payer BC ==
[2024-03-03 10:13] LABS: Albumin 4.3 g/dL (3.8-4.9); Blood Urea Nitrogen 17.5 mg/dL (9.0-27.0); Calcium 8.8 mg/dL (8.7-10.3); Carbon Dioxide 24.3 mmol/L (21.6-31.8); Chloride 104 mmol/L (96-109); Glucose 105 mg/dL (70-110); Phosphorus 4.6 mg/dL (2.4-5.1); Potassium 4.3 mmol/L (3.5-5.5); Sodium 142 mmol/L (135-145)
== END | disposition home or self-care (01) ==
LOC: LABWHC1 09:56
PROVIDERS: ATTEND Internal Medicine
DX: I10 Essential (primary) hypertension (principal); E87.6 Hypokalemia
CPT/HCPCS: 36415; 80069

== ENCOUNTER → 2024-03-12 | Outpatient (CLI) | payer BC ==
--- NOTE | 2024-03-12 08:20 | CTL ---
EXAMINATION TYPE: CT Low Dose Lung DATE OF EXAM ORDERED: 03/12/2024 HISTORY: Nicotine, smoking. Lung cancer screening CT DLP: 97.[address] CTDI: 2.6 mGy Automated exposure control for dose reduction was used. SCREENING VISIT: Subsequent COMPARISON: 03/10/2023 TECHNIQUE: Low dose computed tomography scan was performed through the chest at 1 mm thick sections a nd reconstructed images in the coronal plane at [address] DIAGNOSTIC QUALITY: Satisfactory FINDINGS: LUNG NODULES: Present, detailed below: 1. There is a 0.5 cm stable nodule medial anterior right lung. Series 4 image 82. 2. There is some faint increased density at the left apex, stable from comparison. Series 4 image 31. LUNGS: COPD: Severity: None Fibrosis: Severity: None Lymph nodes: None Other findings: None RIGHT PLEURAL SPACE: Effusion: None Calcification: None Thickening: None Pneumothorax: None LEFT PLEURAL SPACE: Effusion: None Calcification: None Thickening: None Pneumothorax: None HEART: Other: Ascending thoracic aorta at the level the main pulmonary artery measures 3.7 cm. The main pul monary artery at the bifurcation measures 3.3 cm. Heart Size: Normal Coronary calcification: Moderate Pericardial effusion: None OTHER FINDINGS: Upper abdomen: Left adrenal gland is thickened at 1.9 cm, stable from comparison. Bony thorax: Normal Supraclavicular region: Normal IMPRESSION: No suspicious abnormalities suggests primary or metastatic intrathoracic neoplasm. FOLLOW UP CT CHEST RECOMMENDATION: Follow-up low-dose CT chest one year CT LUNG RAD: Lung-Rad 2 Benign Appearance or Behavior
== END | disposition home or self-care (01) ==
LOC: RADCTMAIN 06:38
PROVIDERS: ATTEND Internal Medicine Critical Care Medicine
DX: Z12.2 Encounter for screening for malignant neoplasm of respiratory organs (principal); F17.210 Nicotine dependence, cigarettes, uncomplicated
CPT/HCPCS: 71271

== ENCOUNTER → 2024-03-23 | Outpatient (CLI) | payer BC | END | disposition home or self-care (01) | LOC: LABWHC1 09:06 | PROVIDERS: ATTEND Internal Medicine | DX: I10 Essential (primary) hypertension (principal) | CPT/HCPCS: 36415; 85652; 86140 ==

== ENCOUNTER → 2024-04-02 | Outpatient (CLI) | payer BC ==
--- NOTE | 2024-04-02 20:15 | US ---
EXAMINATION TYPE: US carotid duplex BILAT DATE OF EXAM: 04/02/2024 COMPARISON: NONE CLINICAL INDICATION: Female, 63 years old with history of I65.29 OCCLUSION AND STENOSIS OF UNSPECIFIE D CAROT; TECHNIQUE: Carotid duplex ultrasound examination. Indirect Doppler criteria was utilized. FINDINGS: EXAM MEASUREMENTS: RIGHT: Peak Systolic Velocity (PSV) cm/sec ----- Right CCA: 64.4 ----- Right ICA: 239.8 ----- Right ECA: 114.4 ICA/CCA ratio: 3.7 RIGHT: End Diastole cm/sec ----- Right CCA: 11.7 ----- Right ICA: 68.1 ----- Right ECA: 9.6 LEFT: Peak Systolic Velocity (PSV) cm/sec ----- Left CCA: 64.5 ----- Left ICA: 81.1 ----- Left ECA: 78.1 ICA/CCA ratio: 1.3 LEFT: End Diastole cm/sec ----- Left CCA: 15.3 ----- Left ICA: 24.8 ----- Left ECA: 8.7 VERTEBRALS (direction of flow): Right Vertebral: Antegrade Left Vertebral: Antegrade Rhythm: Normal Elevated right proximal ICA, right ICA/CCA ratio 3.7. There is mild atherosclerotic plaque. IMPRESSION: Findings are suggestive of a 50-69% stenosis proximal right ICA. Consider follow-up CTA carotid bifur cation. Criteria for Assigning % of Stenosis / Diameter reduction (Estimation based on the indirect measurements of the internal carotid artery velocities (ICA PSV). 1. Normal (no stenosis)=ICA PSV < 125 cm/s: ratio < 2.0: ICA EDV<40 cm/s. 2. Less than 50% stenosis=ICA PSV < 125 cm/s: ratio < 2.0: ICA EDV<40 cm/s. 3. 50 to 69% stenosis=ICA PSV of 125 to 230 cm/s: ration 2.0 ? 4.0: ICA EDV 40-100 cm/s. 4. Greater than 70% stenosis to near occlusion= ICA PSV > 230 cm/s: ratio > 4.0: ICA EDV > 100 cm/s. 5. Near occlusion= ICA PSV velocities may be low or undetectable: variable ratio and ICA EDV. 6. Total occlusion=unable to detect flow.
== END | disposition home or self-care (01) ==
LOC: RADUSWWP 16:15
PROVIDERS: ATTEND Internal Medicine
DX: I65.29 Occlusion and stenosis of unspecified carotid artery (principal); R09.89 Other specified symptoms and signs involving the circulatory and respiratory systems; I10 Essential (primary) hypertension
CPT/HCPCS: 93880

== ENCOUNTER → 2024-04-08 | Outpatient (CLI) | payer BC ==
--- NOTE | 2024-05-01 10:35 | MM ---
Reason for Exam: Hx of breast cancer, conservation therapy. Last mammogram was performed 1 year(s) and 1 month(s) ago. Patient History: Menarche at age 13. First Full-Term at age 33. Late child-bearing (after 31). Hysterectomy at age 38. Breast cancer, left, age 62. Breast cancer, left, age 62. Previous chest radiation therapy at age 62. Previous chemotherapy at age 62. Patient used Estrogen for 1 year. 04/14/2023, Lumpectomy on the Left side. 04/14/2023, Malignant US breast localization LT on the left side. 03/29/2023, Malignant US biopsy breast VAD LT on the left side. Prior Study Comparison: 07/31/2019 Bilateral Screening Mammogram, [facility]. 06/07/2021 Bilateral Screening Mammogram, [facility]. 03/10/2023 Bilateral MG 3D screening mammo w/cad, [facility]. 03/16/2023 Left MG 3D work up w/cad LT, [facility]. 03/20/2023 Left US breast workup LT, [facility]. 03/29/2023 Left MG diagnostic mammo LT wo CAD., [facility]. 04/14/2023 Left MG diagnostic mammo LT wo CAD., [facility]. Tissue Density: There are scattered areas of fibroglandular density. Findings: Analyzed By CAD. Postsurgical and posttreatment change left breast. Short interval follow-up recommended to assess for any evolving posttreatment change. Focal asymmetry lateral right breast anterior to middle depth remains unchanged. No significant change otherwise seen from prior exams. Overall Assessment: Probably benign, BI-RAD 3 Management: Diagnostic Mammogram of the left breast in 6 months. To assess for any evolving posttreatment change. Results were given to the patient verbally at the time of exam. Patient should continue monthly self-breast exams. A clinical breast exam by your physician is recommended on an annual basis. This exam should not preclude additional follow-up of suspicious palpable abnormalities. Electronically signed and approved by: Maxim Raphael M.D. Radiologist
== END | disposition home or self-care (01) ==
LOC: RADMAMWWP 06:57
PROVIDERS: ATTEND Surgery
DX: Z85.3 Personal history of malignant neoplasm of breast (principal); I10 Essential (primary) hypertension; R92.323 Mammographic fibroglandular density, bilateral breasts; D44.10 Neoplasm of uncertain behavior of unspecified adrenal gland
CPT/HCPCS: 77062; 77066; 80048; 82088; 82533; 83835; 84244

== ENCOUNTER → 2024-04-12 | Outpatient (CLI) | payer BC ==
--- NOTE | 2024-05-14 11:18 | CT ---
Site ID synapse default Patient Rayna Denis L ID [id number] Age/Gender: 63Y, F Order # N/A Procedure CT ANGIOGRAM HEAD NECK W CONTRAST Date 04/12/2024 8:18:21 AM EXAMINATION TYPE: CT angio head neck CT DLP: 1133.30 (head) and 424.20 (body) mGycm, Automated exposure control for dose reduction was use d. DATE OF EXAM: 04/12/2024 COMPARISON: Carotid ultrasound 04/02/2024, CT brain C-spine 09/26/2023. CLINICAL INDICATION: Female, 63 year old with history of carotid stenosis. TECHNIQUE: Axially acquired helical CT angiogram of the head and neck was obtained with contrast util izing 75 cc of Isovue-370 administered intravenously. Axial images are supplemented with MIP reconstr uctions which were post-processed at an independent workstation. NASCET criteria used. Delayed interp retation due to institutional cyber attack. FINDINGS: CTA HEAD: No evidence of acute intracranial hemorrhage, mass effect, or midline shift. The ventricles, sulci, a nd cisterns are unremarkable. Nonspecific punctate bilateral basal ganglia calcifications with left g reater than right. The visualized portions of the internal carotid arteries, middle cerebral arteries, anterior cerebral arteries, and posterior cerebral arteries are patent. Hypoplastic appearance of the left posterior i ndicating artery. The basilar and vertebral arteries are patent. CTA NECK: Right Carotid System: The common carotid artery and external carotid artery are patent. There is approximately 70% stenosis at the origin of the right internal carotid artery secondary to noncalcified plaque. Mild atheroscle rotic plaque involving the cavernous portion of the internal carotid artery. The remaining portions o f the internal carotid artery demonstrate normal size without significant narrowing. Left Carotid System: The common carotid artery and external carotid artery are patent. The carotid bifurcation demonstrate s no evidence of hemodynamically significant stenosis. Minimal plaque at the carotid bifurcation. Mil d atherosclerotic plaque involving the cavernous portion of the internal carotid artery. The remainin g portions of the internal carotid artery demonstrate normal size without significant narrowing. Vertebral arteries are patent. Short segment right vertebral artery V2 segment moderate stenosis seco ndary to calcified plaque (series 11, image 95). The vertebral arteries are codominant. There is a three-vessel aortic arch. The origins of the great vessels are patent. Mild narrowing of t he origin the left subclavian artery secondary to calcified and noncalcified plaque. Atrophic appeara nce of the thyroid gland. IMPRESSION: 1. Approximately 70% stenosis involving the proximal right internal carotid artery due to noncalcifie d plaque. This corresponds with ultrasound finding. 2. No significant stenosis involving the left carotid arterial system. 3. Short segment moderate stenosis involving the V2 segment of the right vertebral artery. 4. No evidence of intracranial high-grade stenosis or intracranial aneurysm.
== END | disposition home or self-care (01) ==
LOC: RADCTMAIN 07:42
PROVIDERS: ATTEND Internal Medicine
DX: I65.23 Occlusion and stenosis of bilateral carotid arteries (principal)
CPT/HCPCS: 70496; 70498; Q9967

== ENCOUNTER → 2024-07-12 | Outpatient (CLI) | payer BC ==
--- NOTE | 2024-07-16 20:12 | PE ---
EXAMINATION TYPE: PET CT fusion skull to thigh DATE OF EXAM: 07/12/2024 COMPARISON: CT chest 03/12/2024 Prior PET/CT: 10/05/2023 CLINICAL INDICATION: Female, 64 years old with history of C50.412 BREAST CANCER, TECHNIQUE: Following the intravenous administration of 11.84 mCi of F-18 FDG, whole body images are performed from the skull base to the midthigh. Images are reviewed on the computer in the coronal, a xial, and sagittal planes. Reconstructed rotating images are created on independent workstation and reviewed on the computer. A localization and attenuation correction CT is performed in conjunction with the PET scan. DLP: 747.63 mGycm SCAN: Subsequent Blood glucose: 102 mg/dL Average Mediastinum SUV: 2.4 Average Liver SUV: 2.45 FINDINGS: NECK: No abnormal uptake THORAX: Mild skin thickening posterior to the left breast. No suspicious uptake within the thorax ABDOMEN: No abnormal uptake PELVIS: No abnormal uptake OSSEOUS STRUCTURES: No abnormal uptake LOCALIZATION CT: Diverticulosis without acute diverticulitis is present. COMPARISON: No significant interval change IMPRESSION: 1. No suspicious uptake to suggest recurrent or metastatic breast cancer. 2. Diverticulosis without acute diverticulitis. [facility], , 07/16/2024 8:09 PM
== END | disposition home or self-care (01) ==
LOC: RADPETMAIN 07:01
PROVIDERS: ATTEND Internal Medicine Hematology & Oncology
DX: C50.412 Malignant neoplasm of upper-outer quadrant of left female breast (principal); K57.90 Diverticulosis of intestine, part unspecified, without perforation or abscess without bleeding
CPT/HCPCS: 78815; A9552

== ENCOUNTER → 2024-09-28 | Outpatient (CLI) | payer BC ==
[2024-09-28 12:46] LABS: HCT 42.8 % (37.2-46.3); HGB 14.3 g/dL (12.0-15.0); MCH 30.8 pg (27.0-32.0); MCHC 33.4 g/dL (32.0-37.0); MCV 92.2 FL (80.0-97.0); Mean Platelet Volume 9.8 FL (9.5-12.2); NRBC Per 100 WBC 0 X 10*3/uL (0.00-0.01); Platelet Count 188 X 10*3/uL (140-440); RBC 4.64 X 10*6/uL (4.10-5.20); WBC 8.16 X 10*3/uL (4.50-10.00)
[2024-09-28 13:23] LABS: Blood Urea Nitrogen 19.3 mg/dL (9.0-27.0); Carbon Dioxide 22.8 mmol/L (21.6-31.8); Chloride 108 mmol/L (96-109); Potassium 3.4 mmol/L (3.5-5.5); Sodium 143 mmol/L (135-145)
== END | disposition home or self-care (01) ==
LOC: LABPAT 09:02
PROVIDERS: ATTEND Internal Medicine
DX: Z01.812 Encounter for preprocedural laboratory examination (principal); R07.9 Chest pain, unspecified
CPT/HCPCS: 80051; 82565; 84520; 85027

== ENCOUNTER 2024-10-04 08:36 | Day surgery (SDC) | payer BC ==
[~2024-10-04 08:36] MED LIST changes: -ACETAMINOPHEN TAB 500 MG TAB PO PRN; +ALPRAZolam 0.25 MG TAB PO PRN; +ATORVASTATIN 80 MG TAB PO STA; -DEXAMETHASONE SOD PHOSPHATE 4 MG/ML 1 ML VIAL IV ONE; -HEPARIN SODIUM,PORCINE/PF 5,000 UNIT/0.5 ML SYRINGE SQ PRN; -LACTATED RINGERS 1,000 ML IV SCH; -MIDAZOLAM 2 MG/2 ML VIAL IV PRN; +NITROGLYCERIN SL TABS 0.4 MG TAB SUBLINGUAL PRN; -ONDANSETRON 4 MG/2 ML VIAL IVP ONE; -Pre Op ABX Message 1 EACH MISC MISCELLANE ONE; -SCOPOLAMINE 1 MG/72 HR PATCH TRANSDERM ONE; -fentaNYL (PF) 50 MCG/ML 2 ML AMP IV PRN
[2024-10-04] MEDS: ALPRAZolam 0.5 MG TAB PO PRN (09:02)
[2024-10-04] MEDS: ASPIRIN 325 MG TAB PO STA (09:12)
[2024-10-04] MEDS: SODIUM CHLORIDE 0.9% 1,000 ML in EMPTY BAG 1 BAG IV SCH (09:13)
[2024-10-04] MEDS: IV FLUID CONTINUATION 1,000 ML IV ONE (09:13)
[2024-10-04 09:24] VITALS: TEMP 97.8
[2024-10-04] MEDS: MIDAZOLAM 2 MG/2 ML VIAL IVP ONE (10:05)
[2024-10-04] MEDS: fentaNYL (PF) 50 MCG/ML 2 ML AMP IVP ONE (10:05)
[2024-10-04] MEDS: LIDOCAINE 1% INJ 10MG/ML (20 ML MDV) SQ ONE (10:08)
[2024-10-04] MEDS: VERAPAMIL SYRINGE (5 MG/10 ML) INTRAARTER ONE (10:09)
[2024-10-04] MEDS: HEPARIN SODIUM 1,000 UN/ML (10ML VL) IV ONE (10:12)
[2024-10-04] MEDS: HEPARIN SODIUM,PORCINE 10,000 UNIT in SODIUM CHLORIDE 0.9% 1,000 ML IRRIGATION PRN (10:13)
[2024-10-04] MEDS: HEPARIN SODIUM,PORCINE (1 ML) 2,500 UNIT in SODIUM CHLORIDE 0.9% 250 ML IRRIGATION PRN (10:13)
[2024-10-04] MEDS: IOPAMIDOL-370 100ML BTL INJ ONE (10:23)
[2024-10-04] MEDS: hydrALAZINE HCL 20 MG/ML 1 ML VIAL IVP STA (10:36)
[2024-10-04] MEDS: cloNIDine HCL 0.1 MG TAB PO STA (10:53)
[2024-10-04] MEDS: ACETAMINOPHEN TAB 500 MG TAB PO STA (10:54)
[2024-10-04 11:36] VITALS: RESP 16
[2024-10-04 13:50] VITALS: BP 168/85; PULSE 82
--- NOTE | 2024-10-04 14:46 | P.CARDCATH ---
Description of Procedure: PROCEDURES PERFORMED: Left heart catheterization, bilateral coronary angiography, ultrasound guided arterial access, abdominal angiogram INDICATION: chest pain at rest concerning for angina with history of PAD, resistant hypertension with concern of renal artery stenosis CONSENT:The risks, benefits and alternative therapies for the above-mentioned procedure and for both sedation/analgesia as well as necessary blood product administration, if indicated, as they pertain to this patient were discussed with the patient. The patient has indicated understanding and acceptance of the risks and procedures discussed. PROCEDURE: After the risks, benefits and alternatives of the above mentioned procedure explained in detail with the patient, informed consent was obtained. Patient was taken to the catheterization lab and prepped and draped in usual fashion. Ultrasound guidance was used to assess for arterial access. 1% lidocaine was used to anesthetize the right radial artery. A 6-Bel[place]ian sheath was placed in the right radial artery using modified Seldinger technique and ultrasound guidance. Left coronary angiography was performed with a 5-[place]ian JL 3.5 catheter and right coronary angiography was performed with a 5-[place]ian FR5 catheter in various views. A 5-[place]ian FR5 catheter was inserted into the left ventricle and pressure measurements were obtained. The decision was made to perform abdominal angiogram to identify for any renal artery stenosis. A 5-[place]ian pigtail catheter was inserted into the descending aorta and abdominal angiogram was performed with DSA. The right radial sheath was removed and a TR band was placed with hemostasis achieved. The patient tolerated the procedure well. Patient was transported back to the post catheterization holding area in stable condition. Conscious Sedation: Patient was monitored under the direct supervision of myself for conscious sedation using Versed and fentanyl for a total duration of 17 minutes HEMODYNAMICS: Ao: 198/87 LV: 191/5, LVEDP 16 SELECTIVE CORONARY ARTERIOGRAPHY: LEFT MAIN: The left main is a large caliber vessel which bifurcates into the LAD and circumflex. There is no significant stenosis. LEFT ANTERIOR DESCENDING CORONARY ARTERY: LAD is a large caliber vessel which wraps around to the apex. There is mid LAD 10-20% stenosis. LEFT CIRCUMFLEX CORONARY ARTERY: Left circumflex is a moderate caliber vessel without significant stenosis. RIGHT CORONARY ARTERY: The right coronary artery is a large caliber vessel which gives off a PDA and PLV branch and is the dominant vessel. There is 20-30% proximal RCA stenosis. ABDOMINAL ANGIOGRAM: No dissection, no aneurysm. Normal bilateral renal arteries without stenosis. FINAL IMPRESSION: 1. Mild CAD as described above 2. High normal left sided filling pressures 3. No renal artery stenosis PLAN: 1. Aggressive risk factor modification per most recent ACC/AHA guidelines. 2. Follow-up in the office in 1-2 weeks.
== END 2024-10-04 13:56 | disposition home or self-care (01) ==
LOC: CATHCVL 08:36
PROVIDERS: ATTEND Internal Medicine
DX: I25.10 Atherosclerotic heart disease of native coronary artery without angina pectoris (principal); I1A.0 Resistant hypertension; I73.9 Peripheral vascular disease, unspecified
CPT/HCPCS: 99152; 93458; 75625; 84132; C1769; J2250; J0360; J1644 ×3; J2003; J3010; Q9967

== ENCOUNTER → 2025-01-02 | Outpatient (CLI) | payer BC ==
--- NOTE | 2025-01-02 09:16 | XR ---
EXAMINATION TYPE: XR knee complete RT DATE OF EXAM: 01/02/2025 9:13 AM COMPARISON: None. CLINICAL INDICATION: Female, 64 years old with history of M25.561 Right knee pain, pain TECHNIQUE: XR knee complete RT views were obtained FINDINGS: There is no acute fracture/dislocation. The tri-compartment joint spaces appear moderatel y narrowed. The overlying soft tissue appears unremarkable. IMPRESSION: There is no acute fracture or dislocation.ICD 10 NO FRACTURE, INITIAL EVALUATION [facility], , 01/02/2025 9:14 AM
== END | disposition home or self-care (01) ==
LOC: RADXRMAIN 08:53
PROVIDERS: ATTEND Family Medicine
DX: M25.561 Pain in right knee (principal)